=== PATIENT | female | born 1945 | race Caucasian/White ===

== ENCOUNTER 2021-06-14 14:05 | Emergency (ER) | payer BC ==
[2021-06-14 14:25] VITALS: TEMP 98.5
[2021-06-14] MEDS ORDERED: HYDROmorphone 0.5 MG/0.5 ML SYRINGE IVP STA ×2 (15:20→16:56)
[2021-06-14] MEDS ORDERED: LORazepam 2 MG/ML INJ IV STA (15:20)
[2021-06-14] MEDS ORDERED: LIDOCAINE 1%-EPI 1:100,000 20 ML VIAL SQ STA (15:21)
--- NOTE | 2021-06-14 15:26 | ED ---
General Adult HPI <Tigist Mendez - Last Filed: 06/14/21 18:04> - General Source: EMS Mode of arrival: EMS Limitations: no limitations <AkiMichele Cassius - Last Filed: 06/14/21 19:03> - General Chief complaint: Fall Stated complaint: fall Time Seen by Provider: 06/14/21 14:36 - History of Present Illness Initial comments: Dictation was produced using [employer] dictation software. please excuse any g rammatical, word or spelling errors. Chief Complaint: 76-year-old hospice patient presents after fall History of Present Illness: 76-year-old female with multiple comorbidities presents to emergency department after fall. Patient was at home using her walker when she tripped and lost her balance. She states she hurt herself. She complains of back pain. Patient also did report hitting her head. Denies loss of consciousness. She states that she was unable to get up felt too weak. Suffered a laceration to her right upper extremity. Patient adamantly continues to mention that she used to be a nurse for 55 years. The ROS documented in this emergency department record has been reviewed and confirmed by me. Those systems with pertinent positive or negative responses have been documented in the HPI. All other systems are other negative and/or noncontributory. PHYSICAL EXAM: General Impression: Alert and oriented x3, not in acute distress, c-collar placed HEENT: Normocephalic atraumatic, extra-ocular movements intact, pupils equal and reactive to light bilaterally, mucous membranes moist. Cardiovascular: Heart regular rate and rhythm Chest: Able to complete full sentences, no retractions, no tachypnea Abdomen: abdomen soft, non-tender, non-distended, no organomegaly Musculoskeletal: Pulses present and equal in all extremities, no peripheral edema Motor: no focal deficits noted Neurological: CN II-XII grossly intact, no focal motor or sensory deficits noted Skin: Laceration to the right medial elbow Psych: Normal affect and mood ED course: 76-year-old who presents to the emergency department after fall. She is frail and has multiple comorbidities. She is hospice. Hospice nurse was at the bedside and gave a little synopsis of patient's history. Laceration was repaired at bedside by physician metal forger's assistant, Tigist Mendez. Patient does not have any localizing symptoms. Computed tomography scan chest and the pelvis and C-spine shows no acute processes. Laboratory evaluation shows leukocytosis of 16.4, hemoglobin 9.3. Most recent labs are from 2019. It is unclear what patient's labs have been like the last couple days. Metabolic panel is normal. Urinalysis negative. Computed tomography scan does show perhaps some lung infiltrates concerning for pneumonia. Patient given MiraLAX to treat imaging findings with leukocytosis. Patient given prescription for azithromycin and Augmentin. Patient agreeable to plan. EKG interpretation: Ventricular rate 74, normal sinus rhythm,. 172, QRS 78 2, QTc 448. No MT prolongation, no QTC prolongation, no ST or T-wave changes noted. Overall, this EKG is unremarkable (Michele Prabhakar) - Related Data Previous Rx's Medication Instructions Recorded Amoxic-Pot Clav 875-125Mg 1 tab PO BID 5 Days #10 tab 06/14/21 [Augmentin 875-125] Azithromycin [Zithromax Z-pack (6 0 mg PO DIRECTED 5 Days #6 tab 06/14/21 tabs)] Allergies Allergy/AdvReac Type Severity Reaction Status Date / Time carbidopa [From Sinemet] Allergy Unknown Verified 06/14/21 17:45 levodopa [From Sinemet] Allergy Unknown Verified 06/14/21 17:45 levofloxacin [From Levaquin] Allergy Unknown Verified 06/14/21 17:45 metoclopramide [From Reglan] Allergy Unknown Verified 06/14/21 17:45 Review of Systems ROS Other: All systems not noted in ROS Statement are negative. <Tigist Mendez - Last Filed: 06/14/21 18:04> ROS Other: All systems not noted in ROS Statement are negative. <Michele Prabhakar - Last Filed: 06/14/21 19:03> ROS Statement: Those systems with pertinent positive or pertinent negative responses have been documented in the HPI. 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 History of Any Multi-Drug Resistant Organisms: None Reported Past Surgical History: Hysterectomy, Tonsillectomy Past Psychological History: Anxiety Smoking Status: Never smoker Past Alcohol Use History: None Reported Past Drug Use History: None Reported <Mcihele Prabhakar - Last Filed: 06/14/21 19:03> General Exam Limitations: no limitations <Michele Prabhakar - Last Filed: 06/14/21 19:03> Course Vital Signs 06/14/21 06/14/21 14:18 17:13 Temperature 98.5 F Pulse Rate 84 80 Respiratory 20 18 Rate Blood Pressure 99/40 100/51 O2 Sat by Pulse 99 98 Oximetry Procedures - Laceration Laceration #1 Consent Obtained: verbal consent Indication: laceration Site: upper extremity Description: linear Depth: simple, single layer Anesthetic Used: lidocaine 1%, with epi Amount (mls): 4 Pre-repair: irrigated extensively, deep structures intact Type of Sutures: nylon Size of Sutures: 4-0 Number of Sutures: 7 Technique: simple, interrupted Patient Tolerated Procedure: well, no complications <Tigist Mendez - Last Filed: 06/14/21 18:04> Medical Decision Making - Lab Data Result diagrams: 06/14/21 15:45 06/14/21 15:45 <Tigist Mendez - Last Filed: 06/14/21 18:04> - Lab Data Result diagrams: 06/14/21 15:45 06/14/21 15:45 <Michele Prabhakar - Last Filed: 06/14/21 19:03> - Lab Data Lab Results 06/14/21 06/14/21 06/14/21 Range/Units 15:45 15:45 18:15 WBC 16.4 H (3.8-10.6) k/uL RBC 3.47 L (3.80-5.40) m/uL Hgb 9.3 L (11.4-16.0) gm/dL Hct 29.5 L (34.0-46.0) % MCV 85.1 (80.0-100.0) fL MCH 26.7 (25.0-35.0) pg MCHC 31.4 (31.0-37.0) g/dL RDW 19.1 H (11.5-15.5) % Plt Count 193 (150-450) k/uL MPV 7.9 Neutrophils % 90 % Lymphocytes % 5 % Monocytes % 3 % Eosinophils % 1 % Basophils % 0 % Neutrophils # 14.8 H (1.3-7.7) k/uL Lymphocytes # 0.9 L (1.0-4.8) k/uL Monocytes # 0.5 (0-1.0) k/uL Eosinophils # 0.2 (0-0.7) k/uL Basophils # 0.0 (0-0.2) k/uL Hypochromasia Moderate Anisocytosis Slight Microcytosis Slight Sodium 137 (137-145) mmol/L Potassium 3.9 (3.5-5.1) mmol/L Chloride 107 (98-107) mmol/L Carbon Dioxide 26 (22-30) mmol/L Anion Gap 4 mmol/L BUN 16 (7-17) mg/dL Creatinine 0.47 L (0.52-1.04) mg/dL Est GFR (CKD-EPI)AfAm >90 (>60 ml/min/1.73 sqM) Est GFR (CKD-EPI)NonAf >90 (>60 ml/min/1.73 sqM) Glucose 99 (74-99) mg/dL Calcium 8.1 L (8.4-10.2) mg/dL Urine Color Light Yellow Urine Appearance Clear (Clear) Urine pH 7.0 (5.0-8.0) Ur Specific [place] 1.016 (1.001-1.035) Urine Protein Negative (Negative) Urine Glucose (UA) Negative (Negative) Urine Ketones Negative (Negative) Urine Blood Negative (Negative) Urine Nitrite Negative (Negative) Urine Bilirubin Negative (Negative) Urine Urobilinogen <2.0 (<2.0) mg/dL Ur Leukocyte Esterase Negative (Negative) Disposition <Tigist Mendez - Last Filed: 06/14/21 18:04> Is patient prescribed a controlled substance at d/c from ED?: No <Michele Prabhakar - Last Filed: 06/14/21 19:03> Clinical Impression: Fall Disposition: HOME SELF-CARE Condition: Fair Instructions (If sedation given, give patient instructions): Fall Prevention for Older Adults (ED) Additional Instructions: Follow-up with her primary care doctor. Please seek medical attention if any worsening symptoms especially fevers, cough, shortness of breath. Prescriptions: Amoxic-Pot Clav 875-125Mg [Augmentin 875-125] 1 tab PO BID 5 Days #10 tab Azithromycin [Zithromax Z-pack (6 tabs)] 0 mg PO DIRECTED 5 Days #6 tab Referrals: Matthew Pugh MD [Primary Care Provider] - 1-2 days
[2021-06-14 15:58] LABS: Anisocytosis Slight; Basophils % (A) 0 %; Eosinophils # (A) 0.2 k/uL (0-0.7); Eosinophils % (A) 1 %; HCT 29.5 % (34.0-46.0); HGB 9.3 gm/dL (11.4-16.0); Hypochromasia Moderate; Lymphocytes # (A) 0.9 k/uL (1.0-4.8); Lymphocytes % (A) 5 %; MCH 26.7 pg (25.0-35.0); MCHC 31.4 g/dL (31.0-37.0); MCV 85.1 fL (80.0-100.0); Mean Platelet Volume 7.9; Microcytosis Slight; Monocytes # (A) 0.5 k/uL (0-1.0); Monocytes % (A) 3 %; Neutrophils # (A) 14.8 k/uL (1.3-7.7); Neutrophils % (A) 90 %; Platelet Count 193 k/uL (150-450); RBC 3.47 m/uL (3.80-5.40); RDW 19.1 % (11.5-15.5); WBC 16.4 k/uL (3.8-10.6)
[2021-06-14 16:18] LABS: African American GFR (CKD) >90 (>60 ml/min/1.73 sqM); Anion Gap 4 mmol/L; Blood Urea Nitrogen 16 mg/dL (7-17); Calcium 8.1 mg/dL (8.4-10.2); Carbon Dioxide 26 mmol/L (22-30); Chloride 107 mmol/L (98-107); Glucose 99 mg/dL (74-99); Non-African American GFR(CKD) >90 (>60 ml/min/1.73 sqM); Sodium 137 mmol/L (137-145)
[2021-06-14 16:31] LABS: Potassium 3.9 mmol/L (3.5-5.1)
--- NOTE | 2021-06-14 17:15 | CT ---
EXAMINATION TYPE: CT brain hussain aguirre DATE OF EXAM: 06/14/2021 COMPARISON: None HISTORY: fall CT DLP: 1186.[address] of the brain was performed. The ventricles, basal cisterns and sulci overlying the cerebral convexities demonstrate mild enlargem ent. There is no evidence for intracranial hemorrhage or sulcal effacement. There is decreased attenuatio n about the periventricular white matter and deep white matter of both cerebral hemispheres, compatib le with chronic small vessel ischemia. No mass effects are seen. If symptoms persist consider MRI. Osseous calvarium is intact. IMPRESSION: 1. Age related atrophic and chronic small vessel ischemic change without acute intracranial process seen at this time. CT Cervical Spine: Unenhanced CT of the cervical spine was performed with bone and soft tissue window settings submitted . Coronal and sagittal reconstruction is obtained. There is normal alignment and prevertebral soft tissues. No evidence for acute cervical fracture . Ex tensive cervical decompression surgery. Pedicular screws and interconnecting rods are in place. Sca ttered degenerative disc disease and spondylosis. Biapical scarring. IMPRESSION: 1. No evidence for acute fracture or subluxation of the cervical spine.
--- NOTE | 2021-06-14 17:19 | CT ---
EXAMINATION TYPE: CT ChestAbdPelvis w con DATE OF EXAM: 06/14/2021 COMPARISON: None HISTORY: fall CT DLP: 816.2 mGycm CONTRAST: Contrast enhanced Trauma CT of the Chest, Abdomen and Pelvis is performed with IV Contrast, patient i njected with 100 mL of Isovue 300. Chest: LUNGS: There is no evidence for pneumothorax. Patchy right upper lobe infiltrate may reflect underlyi ng pneumonia. No pleural effusion MEDIASTINUM: Thoracic aorta is of normal caliber without CT evidence to suggest traumatic induced ao rtic injury. No mediastinal fluid or blood. No pericardial fluid or cardia abnormality. HILAR STRUCTURES: No evidence for mass. No hilar adenopathy is appreciated. OTHER: No significant abnormality. OSSEOUS: No displaced osseous fractures identified. CT ABDOMEN AND PELVIS FINDINGS: LIVER/GB: No focal laceration, contusion or subcapsular hemorrhage. Cholecystectomy clips are in pl rupal. Intra and extrahepatic biliary ductal dilatation noted.. PANCREAS: No evidence for transection. No inflammation. No distinct mass. SPLEEN: No focal laceration, contusion or subcapsular hemorrhage. ADRENALS: No hemorrhage. No nodule. No thickening. KIDNEYS/BLADDER: No focal laceration, contusion or subcapsular hemorrhage. No hydronephrosis. No n ephrolithiasis. Renal cystic changes noted. BOWEL: Bowel is intact. No evidence for pneumoperitoneum. GENITAL ORGANS: No gross abnormality. LYMPH NODES: No greater than 1cm abdominal or pelvic lymph nodes are appreciated. AORTA: No traumatic aortic injury visualized. Right iliac stent noted to be in place. OSSEOUS STRUCTURES: No displaced fracture seen. OTHER: No evidence for hemoperitoneum. IMPRESSION: 1. No evidence for traumatic injury to the chest. 2. No evidence for traumatic injury to the abdomen or pelvis. 3. Right upper lobe infiltrate. Correlate for pneumonia.
[2021-06-14 18:46] LABS: Appearance,Urine Clear (Clear); Bilirubin,Urine Negative (Negative); Blood,Urine Negative (Negative); Color,Urine Light Yellow; Glucose,Urine (UA) Negative (Negative); Ketones,Urine Negative (Negative); Leukocyte Esterase,Urine Negative (Negative); Nitrite,Urine Negative (Negative); Protein,Urine Negative (Negative); Specific Gravity,Urine 1.016 (1.001-1.035); Urobilinogen,Urine <2.0 mg/dL (<2.0)
[2021-06-14] MEDS ORDERED: ACET/COD 300 MG/30 MG STARTER PACK 6 TAB BTL PO STA (19:06)
--- NOTE | 2021-06-14 19:07 | ED ---
Medical Decision Making - Lab Data Result diagrams: 06/14/21 15:45 06/14/21 15:45 Lab Results 06/14/21 06/14/21 06/14/21 Range/Units 15:45 15:45 18:15 WBC 16.4 H (3.8-10.6) k/uL RBC 3.47 L (3.80-5.40) m/uL Hgb 9.3 L (11.4-16.0) gm/dL Hct 29.5 L (34.0-46.0) % MCV 85.1 (80.0-100.0) fL MCH 26.7 (25.0-35.0) pg MCHC 31.4 (31.0-37.0) g/dL RDW 19.1 H (11.5-15.5) % Plt Count 193 (150-450) k/uL MPV 7.9 Neutrophils % 90 % Lymphocytes % 5 % Monocytes % 3 % Eosinophils % 1 % Basophils % 0 % Neutrophils # 14.8 H (1.3-7.7) k/uL Lymphocytes # 0.9 L (1.0-4.8) k/uL Monocytes # 0.5 (0-1.0) k/uL Eosinophils # 0.2 (0-0.7) k/uL Basophils # 0.0 (0-0.2) k/uL Hypochromasia Moderate Anisocytosis Slight Microcytosis Slight Sodium 137 (137-145) mmol/L Potassium 3.9 (3.5-5.1) mmol/L Chloride 107 (98-107) mmol/L Carbon Dioxide 26 (22-30) mmol/L Anion Gap 4 mmol/L BUN 16 (7-17) mg/dL Creatinine 0.47 L (0.52-1.04) mg/dL Est GFR (CKD-EPI)AfAm >90 (>60 ml/min/1.73 sqM) Est GFR (CKD-EPI)NonAf >90 (>60 ml/min/1.73 sqM) Glucose 99 (74-99) mg/dL Calcium 8.1 L (8.4-10.2) mg/dL Urine Color Light Yellow Urine Appearance Clear (Clear) Urine pH 7.0 (5.0-8.0) Ur Specific [place] 1.016 (1.001-1.035) Urine Protein Negative (Negative) Urine Glucose (UA) Negative (Negative) Urine Ketones Negative (Negative) Urine Blood Negative (Negative) Urine Nitrite Negative (Negative) Urine Bilirubin Negative (Negative) Urine Urobilinogen <2.0 (<2.0) mg/dL Ur Leukocyte Esterase Negative (Negative) Disposition Clinical Impression: Fall Disposition: HOME SELF-CARE Condition: Fair Instructions (If sedation given, give patient instructions): Fall Prevention for Older Adults (ED) Additional Instructions: Follow-up with her primary care doctor. Please seek medical attention if any worsening symptoms especially fevers, cough, shortness of breath. suture removal in 7-10 days Prescriptions: Amoxic-Pot Clav 875-125Mg [Augmentin 875-125] 1 tab PO BID 5 Days #10 tab Azithromycin [Zithromax Z-pack (6 tabs)] 0 mg PO DIRECTED 5 Days #6 tab Is patient prescribed a controlled substance at d/c from ED?: No Referrals: Matthew Pugh MD [Primary Care Provider] - 1-2 days
[2021-06-14 20:34] VITALS: BP 102/76; PULSE 72; RESP 16
== END 2021-06-14 20:33 | disposition home or self-care (01) ==
LOC: EC 14:05
DX: M54.9 Dorsalgia, unspecified (principal); Z88.1 Allergy status to other antibiotic agents; Z90.710 Acquired absence of both cervix and uterus; F41.9 Anxiety disorder, unspecified
CPT/HCPCS: 99284; 96374; 96375; 96376; 12001; 36415; 93005; 80048; 85025; 81003; 72125; 70450; 71260; 74177; J2060; J1170; Q9967

== ENCOUNTER 2022-03-14 09:16 | Emergency (ER) | payer BC, MEDICARE ==
[2022-03-14 09:27] VITALS: TEMP 97.9
[2022-03-14 11:00] LABS: Anisocytosis Slight; Basophils % (A) 0 %; Eosinophils # (A) 0.1 k/uL (0-0.7); Eosinophils % (A) 1 %; HCT 31.5 % (34.0-46.0); HGB 9.4 gm/dL (11.4-16.0); Hypochromasia Marked; Lymphocytes # (A) 2.1 k/uL (1.0-4.8); Lymphocytes % (A) 14 %; MCH 25.3 pg (25.0-35.0); MCHC 29.8 g/dL (31.0-37.0); MCV 84.9 fL (80.0-100.0); Mean Platelet Volume 7.4; Monocytes # (A) 0.4 k/uL (0-1.0); Monocytes % (A) 3 %; Neutrophils # (A) 12.2 k/uL (1.3-7.7); Neutrophils % (A) 82 %; Platelet Count 358 k/uL (150-450); RBC 3.71 m/uL (3.80-5.40); RDW 16.7 % (11.5-15.5); WBC 14.9 k/uL (3.8-10.6)
[2022-03-14 11:09] LABS: ALT 20 U/L (4-34); AST 19 U/L (14-36); African American GFR (CKD) >90 (>60 ml/min/1.73 sqM); Albumin 3.4 g/dL (3.5-5.0); Alkaline Phosphatase 48 U/L (38-126); Anion Gap 8 mmol/L; Blood Urea Nitrogen 21 mg/dL (7-17); Calcium 8.4 mg/dL (8.4-10.2); Carbon Dioxide 26 mmol/L (22-30); Chloride 107 mmol/L (98-107); Creatine Kinase 42 U/L (30-135); Glucose 86 mg/dL (74-99); Lipase 29 U/L (23-300); Non-African American GFR(CKD) >90 (>60 ml/min/1.73 sqM); Potassium 3.5 mmol/L (3.5-5.1); Sodium 141 mmol/L (137-145); Total Bilirubin 0.2 mg/dL (0.2-1.3); Total Protein 5.5 g/dL (6.3-8.2)
[2022-03-14 11:10] LABS: Lactic Acid, Venous 1.2 mmol/L (0.7-2.0)
--- NOTE | 2022-03-14 12:12 | XR ---
EXAMINATION TYPE: XR chest 2V DATE OF EXAM: 03/14/2022 COMPARISON: NONE TECHNIQUE: PA and lateral views submitted. HISTORY: Confusion FINDINGS: The lungs are clear and there is no pneumothorax, pleural effusion, or focal pneumonia. Degenerativ e changes of the spine is normal. No failure. Surgical changes overlying the cervical spine is hyperi nflation IMPRESSION: 1. No acute process. Correlate for COPD and chronic pulmonary fibrosis.
[2022-03-14] MEDS ORDERED: SODIUM CHLORIDE 0.9% 1,000 ML IV STA (12:19)
[2022-03-14] MEDS ORDERED: SODIUM CHLORIDE 0.9% 500 ML 500 ML IV STA (12:19)
[2022-03-14 12:53] LABS: Appearance,Urine Clear (Clear); Bacteria,Urine Rare /hpf; Bilirubin,Urine Negative (Negative); Blood,Urine Negative (Negative); Color,Urine Yellow; Glucose,Urine (UA) Negative (Negative); Ketones,Urine Negative (Negative); Leukocyte Esterase,Urine Small (Negative); Mucus,Urine Occasional /hpf; Nitrite,Urine Negative (Negative); Protein,Urine Trace (Negative); RBC,Urine 8 /hpf (0-5); Specific Gravity,Urine 1.026 (1.001-1.035); Squamous Epithelial Cell,Urine <1 /hpf (0-4); Urobilinogen,Urine <2.0 mg/dL (<2.0); WBC,Urine 7 /hpf (0-5)
[2022-03-14 13:01] LABS: Amphetamine Screen,Urine Not Detected (NotDetected); Barbiturate Screen,Urine Not Detected (NotDetected); Benzodiazepines Screen,Urine Detected (NotDetected); Cocaine Screen,Urine Not Detected (NotDetected); Methadone Screen, Urine Not Detected (NotDetected); Opiate Screen,Urine Detected (NotDetected); Oxycodone Screen, Urine Detected (NotDetected); Phencyclidine Screen,Urine Not Detected (NotDetected); Tricyclic Antidepressant,Urine Detected (NotDetected); Urn Cannabinoid Scrn Not Detected (NotDetected)
--- NOTE | 2022-03-14 13:08 | ED ---
Psych HPI - General Chief Complaint: Psychiatric Symptoms Stated Complaint: mental health Time Seen by Provider: 03/14/22 09:16 Source: patient, EMS, RN notes reviewed Mode of arrival: EMS - History of Present Illness Initial Comments: 68-year-old female from a [facility] home by EMS for evaluation for hallucinations and had agitation. Patient does have a history of Sjogren's syndrome as well as Parkinson's disease celiac sprue anxiety. She was sent here for evaluation patient herself states she has no problems other than question whether her Requip is helping with her tremors. She denies any fevers chills nausea vomiting sweats she does not believe she has any cognitive problems at this time. 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 She does state that she was on Seroquel but did not seem to help with her problems per Requip seem to one taken a proper fashion. She denies any headache dizziness blurry vision fevers chills sweats or other symptoms at this time she does state that she is in hospice however she is in the process of moving to [place] to be with her daughter. MD Complaint: other - Related Data Home Medications Medication Instructions Recorded Confirmed ALPRAZolam [Xanax] 0.5 mg PO Q4H PRN 03/14/22 03/14/22 Acetaminophen Tab [Tylenol Tab] 1,000 mg PO Q12H 03/14/22 03/14/22 Buprenorphine [Butrans 5 MCG/HR] 1 patch TRANSDERM Q7D 03/14/22 03/14/22 DULoxetine HCL [Cymbalta] 60 mg PO DAILY 03/14/22 03/14/22 Fexofenadine HCl [Mamie Allergy] 180 mg PO DAILY 03/14/22 03/14/22 HYDROcodone/APAP 10-325MG [[place] 1 tab PO Q4HR 03/14/22 03/14/22 10-325] Melatonin 5 mg PO HS 03/14/22 03/14/22 Omeprazole [PriLOSEC] 40 mg PO DAILY 03/14/22 03/14/22 Ondansetron Odt [Zofran Odt] 4 mg PO Q6H PRN 03/14/22 03/14/22 QUEtiapine [SEROquel] 100 mg PO HS 03/14/22 03/14/22 busPIRone HCl [Buspar] 20 mg PO BID 03/14/22 03/14/22 diphenhydrAMINE HCL [Benadryl] 25 - 50 mg PO Q4-6H 03/14/22 03/14/22 hydrOXYzine pamoate [Vistaril] 25 mg PO Q6H PRN 03/14/22 03/14/22 predniSONE 10 mg PO DAILY 03/14/22 03/14/22 rOPINIRole HCL [Requip] 4 mg PO TID@0400,1200,2000 03/14/22 03/14/22 rOPINIRole HCL [Requip] 8 mg PO DAILY@0800 03/14/22 03/14/22 Allergies Allergy/AdvReac Type Severity Reaction Status Date / Time carbidopa [From Sinemet] Allergy Unknown Verified 03/14/22 11:08 levodopa [From Sinemet] Allergy Unknown Verified 03/14/22 11:08 levofloxacin [From Levaquin] Allergy Unknown Verified 03/14/22 11:08 metoclopramide [From Reglan] Allergy Unknown Verified 03/14/22 11:08 Review of Systems ROS Statement: Those systems with pertinent positive or pertinent negative responses have been documented in the HPI. ROS Other: All systems not noted in ROS Statement are negative. 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 Absent: scleral icterus, conjunctival injection, periorbital swelling ENT exam: Present: mucous membranes dry Neck exam: Present: normal inspection. Absent: tenderness, meningismus, lymphadenopathy Respiratory exam: Present: normal lung sounds bilaterally. Absent: respiratory distress, wheezes, rales, rhonchi, stridor Cardiovascular Exam: Present: regular rate, normal rhythm, normal heart sounds. Absent: systolic murmur, diastolic murmur, rubs, gallop, clicks GI/Abdominal exam: Present: soft, normal bowel sounds. Absent: distended, tenderness, guarding, rebound, rigid Extremities exam: Present: normal inspection, full ROM, normal capillary refill. Absent: tenderness, pedal edema, joint swelling, calf tenderness Back exam: Present: normal inspection Neurological exam: Present: alert, oriented X3, CN II-XII intact Psychiatric exam: Present: normal affect, normal mood Skin exam: Present: warm, dry, intact, normal color. Absent: rash Course Vital Signs 03/14/22 03/14/22 09:18 13:53 Temperature 97.9 F Pulse Rate 70 71 Respiratory 20 15 Rate Blood Pressure 115/61 107/65 O2 Sat by Pulse 98 95 Oximetry Medical Decision Making - Medical Decision Making Patient will be discharged back to the [facility] home patient is in home hospice. - Lab Data Result diagrams: 03/14/22 10:45 03/14/22 10:45 Lab Results 03/14/22 03/14/22 03/14/22 Range/Units 10:45 10:45 10:45 WBC 14.9 H (3.8-10.6) k/uL RBC 3.71 L (3.80-5.40) m/uL Hgb 9.4 L (11.4-16.0) gm/dL Hct 31.5 L (34.0-46.0) % MCV 84.9 (80.0-100.0) fL MCH 25.3 (25.0-35.0) pg MCHC 29.8 L (31.0-37.0) g/dL RDW 16.7 H (11.5-15.5) % Plt Count 358 (150-450) k/uL MPV 7.4 Neutrophils % 82 % Lymphocytes % 14 % Monocytes % 3 % Eosinophils % 1 % Basophils % 0 % Neutrophils # 12.2 H (1.3-7.7) k/uL Lymphocytes # 2.1 (1.0-4.8) k/uL Monocytes # 0.4 (0-1.0) k/uL Eosinophils # 0.1 (0-0.7) k/uL Basophils # 0.0 (0-0.2) k/uL Hypochromasia Marked Anisocytosis Slight Sodium (137-145) mmol/L Potassium (3.5-5.1) mmol/L Chloride (98-107) mmol/L Carbon Dioxide (22-30) mmol/L Anion Gap mmol/L BUN (7-17) mg/dL Creatinine (0.52-1.04) mg/dL Est GFR (CKD-EPI)AfAm (>60 ml/min/1.73 sqM) Est GFR (CKD-EPI)NonAf (>60 ml/min/1.73 sqM) Glucose (74-99) mg/dL Plasma Lactic Acid Nelson 1.2 (0.7-2.0) mmol/L Calcium (8.4-10.2) mg/dL Magnesium (1.6-2.3) mg/dL Total Bilirubin (0.2-1.3) mg/dL AST (14-36) U/L ALT (4-34) U/L Alkaline Phosphatase (38-126) U/L Ammonia <9 (<30) umol/L Creatine Kinase (30-135) U/L Troponin I (0.000-0.034) ng/mL Total Protein (6.3-8.2) g/dL Albumin (3.5-5.0) g/dL Lipase (23-300) U/L Urine Color Yellow Urine Appearance Clear (Clear) Urine pH 6.0 (5.0-8.0) Ur Specific [place] 1.026 (1.001-1.035) Urine Protein Trace H (Negative) Urine Glucose (UA) Negative (Negative) Urine Ketones Negative (Negative) Urine Blood Negative (Negative) Urine Nitrite Negative (Negative) Urine Bilirubin Negative (Negative) Urine Urobilinogen <2.0 (<2.0) mg/dL Ur Leukocyte Esterase Small H (Negative) Urine RBC 8 H (0-5) /hpf Urine WBC 7 H (0-5) /hpf Ur Squamous Epith Cells <1 (0-4) /hpf Urine Bacteria Rare H (None) /hpf Urine Mucus Occasional H (None) /hpf Urine Opiates Screen Detected H (NotDetected) Ur Oxycodone Screen Detected H (NotDetected) Urine Methadone Screen Not Detected (NotDetected) Ur Propoxyphene Screen Not Detected (NotDetected) Ur Barbiturates Screen Not Detected (NotDetected) U Tricyclic Antidepress Detected H (NotDetected) Ur Phencyclidine Scrn Not Detected (NotDetected) Ur Amphetamines Screen Not Detected (NotDetected) U Methamphetamines Scrn Not Detected (NotDetected) U Benzodiazepines Scrn Detected H (NotDetected) Urine Cocaine Screen Not Detected (NotDetected) U Marijuana (THC) Screen Not Detected (NotDetected) Coronavirus (PCR) (Not Detectd) Influenza Type A RNA (Not Detectd) Influenza Type B (PCR) (Not Detectd) 03/14/22 03/14/22 03/14/22 Range/Units 10:45 10:45 10:45 WBC (3.8-10.6) k/uL RBC (3.80-5.40) m/uL Hgb (11.4-16.0) gm/dL Hct (34.0-46.0) % MCV (80.0-100.0) fL MCH (25.0-35.0) pg MCHC (31.0-37.0) g/dL RDW (11.5-15.5) % Plt Count (150-450) k/uL MPV Neutrophils % % Lymphocytes % % Monocytes % % Eosinophils % % Basophils % % Neutrophils # (1.3-7.7) k/uL Lymphocytes # (1.0-4.8) k/uL Monocytes # (0-1.0) k/uL Eosinophils # (0-0.7) k/uL Basophils # (0-0.2) k/uL Hypochromasia Anisocytosis Sodium 141 (137-145) mmol/L Potassium 3.5 (3.5-5.1) mmol/L Chloride 107 (98-107) mmol/L Carbon Dioxide 26 (22-30) mmol/L Anion Gap 8 mmol/L BUN 21 H (7-17) mg/dL Creatinine 0.47 L (0.52-1.04) mg/dL Est GFR (CKD-EPI)AfAm >90 (>60 ml/min/1.73 sqM) Est GFR (CKD-EPI)NonAf >90 (>60 ml/min/1.73 sqM) Glucose 86 (74-99) mg/dL Plasma Lactic Acid Nelson (0.7-2.0) mmol/L Calcium 8.4 (8.4-10.2) mg/dL Magnesium 2.0 (1.6-2.3) mg/dL Total Bilirubin 0.2 (0.2-1.3) mg/dL AST 19 (14-36) U/L ALT 20 (4-34) U/L Alkaline Phosphatase 48 (38-126) U/L Ammonia (<30) umol/L Creatine Kinase 42 (30-135) U/L Troponin I <0.012 (0.000-0.034) ng/mL Total Protein 5.5 L (6.3-8.2) g/dL Albumin 3.4 L (3.5-5.0) g/dL Lipase 29 (23-300) U/L Urine Color Urine Appearance (Clear) Urine pH (5.0-8.0) Ur Specific [place] (1.001-1.035) Urine Protein (Negative) Urine Glucose (UA) (Negative) Urine Ketones (Negative) Urine Blood (Negative) Urine Nitrite (Negative) Urine Bilirubin (Negative) Urine Urobilinogen (<2.0) mg/dL Ur Leukocyte Esterase (Negative) Urine RBC (0-5) /hpf Urine WBC (0-5) /hpf Ur Squamous Epith Cells (0-4) /hpf Urine Bacteria (None) /hpf Urine Mucus (None) /hpf Urine Opiates Screen (NotDetected) Ur Oxycodone Screen (NotDetected) Urine Methadone Screen (NotDetected) Ur Propoxyphene Screen (NotDetected) Ur Barbiturates Screen (NotDetected) U Tricyclic Antidepress (NotDetected) Ur Phencyclidine Scrn (NotDetected) Ur Amphetamines Screen (NotDetected) U Methamphetamines Scrn (NotDetected) U Benzodiazepines Scrn (NotDetected) Urine Cocaine Screen (NotDetected) U Marijuana (THC) Screen (NotDetected) Coronavirus (PCR) (Not Detectd) Influenza Type A RNA Not Detected (Not Detectd) Influenza Type B (PCR) Not Detected (Not Detectd) 03/14/22 Range/Units 10:45 WBC (3.8-10.6) k/uL RBC (3.80-5.40) m/uL Hgb (11.4-16.0) gm/dL Hct (34.0-46.0) % MCV (80.0-100.0) fL MCH (25.0-35.0) pg MCHC (31.0-37.0) g/dL RDW (11.5-15.5) % Plt Count (150-450) k/uL MPV Neutrophils % % Lymphocytes % % Monocytes % % Eosinophils % % Basophils % % Neutrophils # (1.3-7.7) k/uL Lymphocytes # (1.0-4.8) k/uL Monocytes # (0-1.0) k/uL Eosinophils # (0-0.7) k/uL Basophils # (0-0.2) k/uL Hypochromasia Anisocytosis Sodium (137-145) mmol/L Potassium (3.5-5.1) mmol/L Chloride (98-107) mmol/L Carbon Dioxide (22-30) mmol/L Anion Gap mmol/L BUN (7-17) mg/dL Creatinine (0.52-1.04) mg/dL Est GFR (CKD-EPI)AfAm (>60 ml/min/1.73 sqM) Est GFR (CKD-EPI)NonAf (>60 ml/min/1.73 sqM) Glucose (74-99) mg/dL Plasma Lactic Acid Nelson (0.7-2.0) mmol/L Calcium (8.4-10.2) mg/dL Magnesium (1.6-2.3) mg/dL Total Bilirubin (0.2-1.3) mg/dL AST (14-36) U/L ALT (4-34) U/L Alkaline Phosphatase (38-126) U/L Ammonia (<30) umol/L Creatine Kinase (30-135) U/L Troponin I (0.000-0.034) ng/mL Total Protein (6.3-8.2) g/dL Albumin (3.5-5.0) g/dL Lipase (23-300) U/L Urine Color Urine Appearance (Clear) Urine pH (5.0-8.0) Ur Specific [place] (1.001-1.035) Urine Protein (Negative) Urine Glucose (UA) (Negative) Urine Ketones (Negative) Urine Blood (Negative) Urine Nitrite (Negative) Urine Bilirubin (Negative) Urine Urobilinogen (<2.0) mg/dL Ur Leukocyte Esterase (Negative) Urine RBC (0-5) /hpf Urine WBC (0-5) /hpf Ur Squamous Epith Cells (0-4) /hpf Urine Bacteria (None) /hpf Urine Mucus (None) /hpf Urine Opiates Screen (NotDetected) Ur Oxycodone Screen (NotDetected) Urine Methadone Screen (NotDetected) Ur Propoxyphene Screen (NotDetected) Ur Barbiturates Screen (NotDetected) U Tricyclic Antidepress (NotDetected) Ur Phencyclidine Scrn (NotDetected) Ur Amphetamines Screen (NotDetected) U Methamphetamines Scrn (NotDetected) U Benzodiazepines Scrn (NotDetected) Urine Cocaine Screen (NotDetected) U Marijuana (THC) Screen (NotDetected) Coronavirus (PCR) Not Detected (Not Detectd) Influenza Type A RNA (Not Detectd) Influenza Type B (PCR) (Not Detectd) - EKG Data -: EKG Interpreted by [place] EKG shows normal: sinus rhythm EKG Comments: Sinus rhythm a 62. Interval 174 QRS duration 86 QT since QTC 4:15/[address]-T wave changes - Radiology Data Radiology results: report reviewed (Imaging no acute findings), image reviewed Disposition Clinical Impression: Feared condition not demonstrated, Dehydration, Parkinsons disease Disposition: HOME SELF-CARE Condition: Good Instructions (If sedation given, give patient instructions): Dehydration (ED), Parkinson Disease (ED) Is patient prescribed a controlled substance at d/c from ED?: No Referrals: Matthew Pugh MD [Primary Care Provider] - 1-2 days Decision Date: 03/14/22 Decision Time: 14:03
[2022-03-14 15:37] VITALS: BP 119/72; PULSE 68; RESP 16
== END 2022-03-14 15:37 | disposition home or self-care (01) ==
LOC: EC 09:16
DX: E86.0 Dehydration (principal); G20 Parkinson's disease; Z20.822 Contact with and (suspected) exposure to COVID-19; Z88.8 Allergy status to other drugs, medicaments and biological substances; Z88.1 Allergy status to other antibiotic agents
CPT/HCPCS: 36415; 71046; 80053; 80306; 81001; 82140; 82550; 83605; 83690; 83735; 84484; 85025; 87502; 87635; 93005; 96360; 96361; 99285

== ENCOUNTER 2022-03-23 14:20 | Inpatient (IN) | payer MEDICARE ==
[2022-03-23] MEDS ORDERED: SODIUM CHLORIDE 0.9% 1,000 ML IV STA (14:54)
--- NOTE | 2022-03-23 14:59 | ED ---
General Adult HPI - General Chief complaint: Weakness Stated complaint: Fall Time Seen by Provider: 03/23/22 14:32 Source: patient, RN notes reviewed Mode of arrival: EMS Limitations: physical limitation - History of Present Illness Initial comments: Patient is a pleasant 77-year-old female presenting to the emergency department for frequent falls. Patient has had 2 or 3 falls today, one or 2 yesterday and at least one the day before. Patient denies any serious injury. No syncope or head trauma. Patient does feel generally weak. Patient is concerned she may be dehydrated. No chest pain or dyspnea. No isolated area of weakness or confusion. Last tetanus immunization was less than 10 years - Related Data Home Medications Medication Instructions Recorded Confirmed ALPRAZolam [Xanax] 0.5 mg PO Q4H PRN 03/14/22 03/14/22 Acetaminophen Tab [Tylenol Tab] 1,000 mg PO Q12H 03/14/22 03/14/22 Buprenorphine [Butrans 5 MCG/HR] 1 patch TRANSDERM Q7D 03/14/22 03/14/22 DULoxetine HCL [Cymbalta] 60 mg PO DAILY 03/14/22 03/14/22 Fexofenadine HCl [Mamie Allergy] 180 mg PO DAILY 03/14/22 03/14/22 HYDROcodone/APAP 10-325MG [[place] 1 tab PO Q4HR 03/14/22 03/14/22 10-325] Melatonin 5 mg PO HS 03/14/22 03/14/22 Omeprazole [PriLOSEC] 40 mg PO DAILY 03/14/22 03/14/22 Ondansetron Odt [Zofran Odt] 4 mg PO Q6H PRN 03/14/22 03/14/22 QUEtiapine [SEROquel] 100 mg PO HS 03/14/22 03/14/22 busPIRone HCl [Buspar] 20 mg PO BID 03/14/22 03/14/22 diphenhydrAMINE HCL [Benadryl] 25 - 50 mg PO Q4-6H 03/14/22 03/14/22 hydrOXYzine pamoate [Vistaril] 25 mg PO Q6H PRN 03/14/22 03/14/22 predniSONE 10 mg PO DAILY 03/14/22 03/14/22 rOPINIRole HCL [Requip] 4 mg PO TID@0400,1200,2000 03/14/22 03/14/22 rOPINIRole HCL [Requip] 8 mg PO DAILY@0800 03/14/22 03/14/22 Allergies Allergy/AdvReac Type Severity Reaction Status Date / Time carbidopa [From Sinemet] Allergy Unknown Verified 03/23/22 14:31 levodopa [From Sinemet] Allergy Unknown Verified 03/23/22 14:31 levofloxacin [From Levaquin] Allergy Unknown Verified 03/23/22 14:31 metoclopramide [From Reglan] Allergy Unknown Verified 03/23/22 14:31 Review of Systems ROS Statement: Those systems with pertinent positive or pertinent negative responses have been documented in the HPI. ROS Other: All systems not noted in ROS Statement are negative. 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 History of Any Multi-Drug Resistant Organisms: None Reported Past Surgical History: Hysterectomy, Tonsillectomy Past Psychological History: Anxiety Smoking Status: Never smoker Past Alcohol Use History: None Reported Past Drug Use History: None Reported General Exam Limitations: physical limitation General appearance: alert, in no apparent distress Head exam: Present: atraumatic, normocephalic Eye exam: Present: normal appearance, PERRL, EOMI ENT exam: Present: normal oropharynx Neck exam: Present: normal inspection. Absent: tenderness Respiratory exam: Present: normal lung sounds bilaterally Cardiovascular Exam: Present: regular rate, normal rhythm GI/Abdominal exam: Present: soft. Absent: tenderness Extremities exam: Present: normal inspection, full ROM. Absent: tenderness Neurological exam: Present: alert Expanded Neurological exam: Present: protecting the airway Cranial nerves: EOM's Intact: Normal Motor strength exam: RUE: 4, LUE: 4, RLE: 4, LLE: 4 Eye Response: (4) open spontaneously Motor Response: (6) obeys commands Verbal Response: (5) oriented Psychiatric exam: Present: normal affect, normal mood Skin exam: Present: other (Skin tears) Course Vital Signs 03/23/22 03/23/22 14:23 16:12 Temperature 99.4 F Pulse Rate 88 87 Respiratory 18 18 Rate Blood Pressure 112/56 92/49 O2 Sat by Pulse 98 95 Oximetry EKG Findings - EKG Comments: EKG Findings:: Sinus rhythm rate 88. For screening AV block MD 208. QRS 74. QT 359. QTC 405. Left axis. Poor R-wave progression. No acute ST change. Artifact is present. Medical Decision Making - Lab Data Result diagrams: 03/23/22 15:03 03/23/22 15:03 Lab Results 03/23/22 03/23/22 03/23/22 Range/Units 15:03 15:03 15:03 WBC 20.7 H (3.8-10.6) k/uL RBC 3.56 L (3.80-5.40) m/uL Hgb 8.9 L (11.4-16.0) gm/dL Hct 29.0 L (34.0-46.0) % MCV 81.3 (80.0-100.0) fL MCH 25.1 (25.0-35.0) pg MCHC 30.9 L (31.0-37.0) g/dL RDW 16.4 H (11.5-15.5) % Plt Count 354 (150-450) k/uL MPV 7.5 Neutrophils % 89 % Lymphocytes % 6 % Monocytes % 3 % Eosinophils % 1 % Basophils % 0 % Neutrophils # 18.5 H (1.3-7.7) k/uL Lymphocytes # 1.3 (1.0-4.8) k/uL Monocytes # 0.6 (0-1.0) k/uL Eosinophils # 0.1 (0-0.7) k/uL Basophils # 0.0 (0-0.2) k/uL Hypochromasia Moderate Anisocytosis Slight PT 10.7 (9.0-12.0) sec INR 1.0 (<1.2) APTT 21.6 L (22.0-30.0) sec Sodium 139 (137-145) mmol/L Potassium 3.7 (3.5-5.1) mmol/L Chloride 106 (98-107) mmol/L Carbon Dioxide 26 (22-30) mmol/L Anion Gap 7 mmol/L BUN 25 H (7-17) mg/dL Creatinine 0.51 L (0.52-1.04) mg/dL Est GFR (CKD-EPI)AfAm >90 (>60 ml/min/1.73 sqM) Est GFR (CKD-EPI)NonAf >90 (>60 ml/min/1.73 sqM) Glucose 95 (74-99) mg/dL Plasma Lactic Acid Nelson (0.7-2.0) mmol/L Calcium 7.7 L (8.4-10.2) mg/dL Phosphorus 3.8 (2.5-4.5) mg/dL Magnesium 1.9 (1.6-2.3) mg/dL Total Bilirubin 0.8 (0.2-1.3) mg/dL AST 243 H (14-36) U/L ALT 191 H (4-34) U/L Alkaline Phosphatase 116 (38-126) U/L Troponin I (0.000-0.034) ng/mL Total Protein 5.4 L (6.3-8.2) g/dL Albumin 3.3 L (3.5-5.0) g/dL TSH 1.470 (0.465-4.680) mIU/L Free T4 1.53 (0.78-2.19) ng/dL 03/23/22 03/23/22 Range/Units 15:03 15:03 WBC (3.8-10.6) k/uL RBC (3.80-5.40) m/uL Hgb (11.4-16.0) gm/dL Hct (34.0-46.0) % MCV (80.0-100.0) fL MCH (25.0-35.0) pg MCHC (31.0-37.0) g/dL RDW (11.5-15.5) % Plt Count (150-450) k/uL MPV Neutrophils % % Lymphocytes % % Monocytes % % Eosinophils % % Basophils % % Neutrophils # (1.3-7.7) k/uL Lymphocytes # (1.0-4.8) k/uL Monocytes # (0-1.0) k/uL Eosinophils # (0-0.7) k/uL Basophils # (0-0.2) k/uL Hypochromasia Anisocytosis PT (9.0-12.0) sec INR (<1.2) APTT (22.0-30.0) sec Sodium (137-145) mmol/L Potassium (3.5-5.1) mmol/L Chloride (98-107) mmol/L Carbon Dioxide (22-30) mmol/L Anion Gap mmol/L BUN (7-17) mg/dL Creatinine (0.52-1.04) mg/dL Est GFR (CKD-EPI)AfAm (>60 ml/min/1.73 sqM) Est GFR (CKD-EPI)NonAf (>60 ml/min/1.73 sqM) Glucose (74-99) mg/dL Plasma Lactic Acid Nelson 1.0 (0.7-2.0) mmol/L Calcium (8.4-10.2) mg/dL Phosphorus (2.5-4.5) mg/dL Magnesium (1.6-2.3) mg/dL Total Bilirubin (0.2-1.3) mg/dL AST (14-36) U/L ALT (4-34) U/L Alkaline Phosphatase (38-126) U/L Troponin I <0.012 (0.000-0.034) ng/mL Total Protein (6.3-8.2) g/dL Albumin (3.5-5.0) g/dL TSH (0.465-4.680) mIU/L Free T4 (0.78-2.19) ng/dL - Radiology Data Radiology results: image reviewed (Chest x-ray shows right lower lobe infiltrat e) Disposition Clinical Impression: Pneumonia, General weakness Disposition: ADMITTED IP TO THIS HOSP Is patient prescribed a controlled substance at d/c from ED?: No Referrals: Matthew Pugh MD [Primary Care Provider] - 1-2 days Time of Disposition: 16:25
[2022-03-23 15:21] LABS: Anisocytosis Slight; Basophils % (A) 0 %; Eosinophils # (A) 0.1 k/uL (0-0.7); Eosinophils % (A) 1 %; HGB 8.9 gm/dL (11.4-16.0); Hypochromasia Moderate; Lymphocytes # (A) 1.3 k/uL (1.0-4.8); Lymphocytes % (A) 6 %; MCH 25.1 pg (25.0-35.0); MCHC 30.9 g/dL (31.0-37.0); MCV 81.3 fL (80.0-100.0); Mean Platelet Volume 7.5; Monocytes # (A) 0.6 k/uL (0-1.0); Monocytes % (A) 3 %; Neutrophils # (A) 18.5 k/uL (1.3-7.7); Neutrophils % (A) 89 %; Platelet Count 354 k/uL (150-450); RBC 3.56 m/uL (3.80-5.40); RDW 16.4 % (11.5-15.5); WBC 20.7 k/uL (3.8-10.6)
[2022-03-23 15:28] LABS: Prothrombin Time 10.7 sec (9.0-12.0)
[2022-03-23 15:29] LABS: ALT 191 U/L (4-34); AST 243 U/L (14-36); African American GFR (CKD) >90 (>60 ml/min/1.73 sqM); Albumin 3.3 g/dL (3.5-5.0); Alkaline Phosphatase 116 U/L (38-126); Anion Gap 7 mmol/L; Blood Urea Nitrogen 25 mg/dL (7-17); Calcium 7.7 mg/dL (8.4-10.2); Carbon Dioxide 26 mmol/L (22-30); Chloride 106 mmol/L (98-107); Glucose 95 mg/dL (74-99); Magnesium 1.9 mg/dL (1.6-2.3); Non-African American GFR(CKD) >90 (>60 ml/min/1.73 sqM); Phosphorus 3.8 mg/dL (2.5-4.5); Sodium 139 mmol/L (137-145); Total Bilirubin 0.8 mg/dL (0.2-1.3); Total Protein 5.4 g/dL (6.3-8.2)
[2022-03-23 15:31] LABS: Potassium 3.7 mmol/L (3.5-5.1)
[2022-03-23 15:43] LABS: Partial Thromboplastin Time 21.6 sec (22.0-30.0)
[2022-03-23 15:44] LABS: T4, Free (Free Thyroxine) 1.53 ng/dL (0.78-2.19)
--- NOTE | 2022-03-23 15:48 | CT ---
EXAMINATION TYPE: CT brain wo con CT DLP: 1039.4 mGycm, Automated exposure control for dose reduction was used. DATE OF EXAM: 03/23/2022 3:40 PM COMPARISON: CT brain C-spine 06/14/2021. CLINICAL INDICATION:Female, 77 years old with history of weakness, weakness, ams TECHNIQUE: Brain: Multiple axial CT images of the brain were obtained without IV contrast. Coronal and sagittal reformats reviewed. FINDINGS: Brain: Extra-axial spaces: No abnormal extra-axial fluid collections. Ventricular system: Within normal limits Cerebral parenchyma: No acute intraparenchymal hemorrhage or mass effect. The persaud-white junction is well differentiated. Scattered hypoattenuating areas are seen within the white matter. Cerebral vol ume loss. Cerebellum: Unremarkable. Mass effect: No evidence of midline shift. Intracranial vasculature: Atherosclerotic calcifications of the intracranial vessels. Soft tissues: Normal. Calvarium/osseous structures: No depressed skull fracture. Paranasal sinuses and mastoid air cells: Mild scattered paranasal sinus disease. Visualized orbits: Orbital contents are intact. IMPRESSION: 1. No acute intracranial process. No significant change from prior examination. 2. Nonspecific white matter changes, likely secondary to chronic small vessel ischemic disease.
--- NOTE | 2022-03-23 15:53 | XR ---
EXAMINATION TYPE: XR chest 2V DATE OF EXAM: 03/23/2022 COMPARISON: 03/14/2022 HISTORY: Weakness TECHNIQUE: Frontal and lateral views of the chest are obtained. FINDINGS: The exam is somewhat limited by technique. There is an ill-defined partially consolidative opacity in one of the lung bases on the lateral view, likely the right lung base suspicious for pneu yoseph infiltrate. There is no pleural effusion or grossly intact. IMPRESSION: Findings suggestive of right lower lobe pneumonia. Clinical correlation short-term foll ow-up to resolution is recommended.
[2022-03-23] MEDS ORDERED: AZITHROMYCIN 500 MG in SODIUM CHLORIDE 0.9% 250 ML IVPB STA (16:23)
[2022-03-23] MEDS ORDERED: PNEUMONIA PROTOCOL UTILIZED 1 EACH MISC PO PRN (16:23)
--- NOTE | 2022-03-23 17:14 | P.HPIM ---
History of Present Illness H&P Date: 03/23/22 History of Presenting Illness: Patient is a Patient underwent full evaluation in the emergency department and was found to have significant leukocytosis with WBC count of 20.7, normocytic anemia with hemoglobin of 8.9, and elevated liver function with AST of 243 and ALT of 191. Chest x-ray revealing right lower lobe pneumonia. CT head negative for acute intercranial process. Troponin was negative at less than 0.012. Covid PCR was negative. Vital signs stable patient did have low-grade temp of 99.4F, heart rate 88, respiratory rate 18, blood pressure 112/56, and SpO2 of 98% on room air. Review of systems: Pertinent positives and negatives as discussed in HPI, a complete review of systems was performed and all other systems are negative. Physical exam: Vital signs reviewed and stable. General: Nontoxic, no distress and appears stated age. Derm: Skin warm and dry, normal coloration for ethnicity. Head: Atraumatic, normocephalic and symmetric. Eyes: EOMs intact, no lid lag, and anicteric sclera Mouth: no lip lesions, mucus membranes moist Cardiovascular: regular rate and rhythm with normal S1S2, no murmur, positive posterior tibial pulses bilaterally, and cap refill < 2 seconds. Lungs: Respirations even, regular, and unlabored on room air. Lungs CTA bilaterally, no rhonchi, no rales, no wheezing, and no accessory muscle usage. Abdominal: soft, nontender to palpation, no guarding, no appreciable organomegaly Ext: ROM intact. No gross muscle atrophy, no edema, no contractures Neuro: Speech clear, face symmetrical and CN II-XII grossly intact with no noted focal neuro deficits Psych: Alert and oriented to person, place, time, and situation. Appropriate and pleasant affect. Assessment and Plan of Care: The patient is admitted with an anticipated greater than 2 midnight stay for evaluation of []. Surrogate decision-maker: [] CODE STATUS:[] DVT prophylaxis: [] Discussed with: [] Anticipated discharge date: [] Anticipated discharge place: [] A total of [] minutes was spent on the care of this complex patient more than 50% of the time was spent in counseling and care coordination. 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 History of Any Multi-Drug Resistant Organisms: None Reported Past Surgical History: Hysterectomy, Tonsillectomy Past Psychological History: Anxiety Smoking Status: Never smoker Past Alcohol Use History: None Reported Past Drug Use History: None Reported Medications and Allergies Home Medications Medication Instructions Recorded Confirmed Type ALPRAZolam [Xanax] 0.5 mg PO Q4H PRN 03/14/22 03/23/22 History Acetaminophen Tab [Tylenol Tab] 1,000 mg PO Q12H 03/14/22 03/23/22 History Buprenorphine [Butrans 5 MCG/HR] 1 patch TRANSDERM Q7D 03/14/22 03/23/22 History DULoxetine HCL [Cymbalta] 60 mg PO DAILY 03/14/22 03/23/22 History Fexofenadine HCl [[place]amie Allergy] 180 mg PO DAILY 03/14/22 03/23/22 History HYDROcodone/APAP 10-325MG [[place] 1 tab PO Q4HR 03/14/22 03/23/22 History 10-325] Melatonin 5 mg PO HS 03/14/22 03/23/22 History Omeprazole [PriLOSEC] 40 mg PO DAILY 03/14/22 03/23/22 History Ondansetron Odt [Zofran Odt] 4 mg PO Q6H PRN 03/14/22 03/23/22 History QUEtiapine [SEROquel] 100 mg PO HS 03/14/22 03/23/22 History busPIRone HCl [Buspar] 20 mg PO BID 03/14/22 03/23/22 History diphenhydrAMINE HCL [Benadryl] 25 - 50 mg PO Q4-6H 03/14/22 03/23/22 History hydrOXYzine pamoate [Vistaril] 25 mg PO Q6H PRN 03/14/22 03/23/22 History predniSONE 10 mg PO DAILY 03/14/22 03/23/22 History rOPINIRole HCL [Requip] 4 mg PO TID@0400,1200,2000 03/14/22 03/23/22 History rOPINIRole HCL [Requip] 8 mg PO DAILY@0800 03/14/22 03/23/22 History Allergies Allergy/AdvReac Type Severity Reaction Status Date / Time carbidopa [From Sinemet] Allergy Unknown Verified 03/23/22 16:55 levodopa [From Sinemet] Allergy Unknown Verified 03/23/22 16:55 levofloxacin [From Levaquin] Allergy Unknown Verified 03/23/22 16:55 metoclopramide [From Reglan] Allergy Unknown Verified 03/23/22 16:55 Physical Exam Vitals: Vital Signs Temp Pulse Resp BP Pulse Ox 03/23/22 16:12 87 18 92/49 95 03/23/22 14:23 99.4 F 88 18 112/56 98 Intake and Output 03/23/22 03/23/22 03/23/22 06:59 14:59 22:59 Other: Weight 45.359 kg Results CBC & Chem 7: 03/23/22 15:03 03/23/22 15:03 Labs: Abnormal Lab Results - Last 24 Hours (Table) 03/23/22 03/23/22 03/23/22 Range/Units 15:03 15:03 15:03 WBC 20.7 H (3.8-10.6) k/uL RBC 3.56 L (3.80-5.40) m/uL Hgb 8.9 L (11.4-16.0) gm/dL Hct 29.0 L (34.0-46.0) % MCHC 30.9 L (31.0-37.0) g/dL RDW 16.4 H (11.5-15.5) % Neutrophils # 18.5 H (1.3-7.7) k/uL APTT 21.6 L (22.0-30.0) sec BUN 25 H (7-17) mg/dL Creatinine 0.51 L (0.52-1.04) mg/dL Calcium 7.7 L (8.4-10.2) mg/dL AST 243 H (14-36) U/L ALT 191 H (4-34) U/L Total Protein 5.4 L (6.3-8.2) g/dL Albumin 3.3 L (3.5-5.0) g/dL
[2022-03-23 17:55] LABS: Appearance,Urine Clear (Clear); Bacteria,Urine Rare /hpf; Bilirubin,Urine Negative (Negative); Blood,Urine Large (Negative); Color,Urine Yellow; Glucose,Urine (UA) Negative (Negative); Ketones,Urine Negative (Negative); Leukocyte Esterase,Urine Moderate (Negative); Mucus,Urine Rare /hpf; Nitrite,Urine Negative (Negative); PH, Urine 6.5 (5.0-8.0); Protein,Urine Trace (Negative); RBC,Urine 12 /hpf (0-5); Specific Gravity,Urine 1.021 (1.001-1.035); Squamous Epithelial Cell,Urine 1 /hpf (0-4); WBC,Urine 13 /hpf (0-5)
--- NOTE | 2022-03-23 18:20 | P.HPIM ---
History of Present Illness H&P Date: 03/23/22 Chief Complaint: Dyspnea, pain 77-year-old woman with a history of Parkinson's, severe protein calorie malnutrition, Sjogren's, lupus, chronic back and neck pain with narcotic dependence presented from home with complaints of uncontrolled pain as well as shortness of breath. Patient is a poor historian due to dementia. From my understanding of what brought her to the hospital, patient has been expressing uncontrolled pain in her back in her neck after having been kicked out of her assisted living facility approximately 4 days ago. Previously she had been living in her assisted living facility under hospice care, but was told that she was no longer welcome and consequently was kicked out and had to go live with her who apparently has alcohol abuse issues. Since that time, she has not had her pain controlled, and has been noticing increased shortness of breath. Review of systems will be unreliable in this patient. In the emergency room, patient was afebrile, 112/56, heart rate 88, 98% on room air. CBC demonstrates a white blood cell count 20.7, hemoglobin of 8.9, neutrophil predominance. Chemistries are unremarkable. Liver function test shows elevated liver function tests at 243, 191 of AST, ALT respectively, low total protein of 5.4, low albumin at 3.3. Coags were unremarkable. Troponin was less than 0.012. Ammonia level was 11. TSH was 1.47. Free T4 is 1.53. Free T3 is 5.0. UA shows trace protein, large blood, moderate leukocyte esterase, 12 red blood cells, 13 white blood cells, rare bacteria. Covid was negative. EKG is of poor quality due to Parkinson's tremors during the reading, appears to be normal sinus rhythm. Chest x-ray demonstrates findings suggestive of right lower lobe pneumonia. Brain CT is negative for an acute intracranial process. See above regarding review of systems Gen: in mild distress from pain, lying on her side and in bed, cachectic Eyes: PERRL, no scleral injection or icterus HENT: normocephalic, atraumatic, good hearing acuity, moist mucous membranes Neck: no tracheal deviation, full range of motion Resp: good air exchange, breathing comfortably with no accessory muscle use, no tactile fremitus, right lower lobe crackles CVS: good distal perfusion x 4, no pitting edema, regular rate and rhythm GI: soft, NTTP, ND, no hepatosplenomegaly : no suprapubic tenderness, no CVAT, jones catheter not present MSK: no clubbing, no cyanosis, no noted contractures of extremities Skin: no noted rashes, petechiae; temperature of skin is appropriate Neuro: moving all extremities without signs of weakness, CN II-XII intact Psych: cooperative, depressed mood Labs and imaging as above Assessment/plan: Sepsis Community acquired pneumonia -Admit to inpatient, telemetry -Ceftriaxone, azithromycin -Follow up blood cultures -Palliative consult on Saturday if patient is still in the hospital -Oxygen as needed Intractable back pain Chronic back and neck pain with narcotic dependence -Morphine 4mg every 4 hours when necessary -[place] when necessary -Bowel regimen Severe protein calorie malnutrition -Dietitian consult History of Parkinson's History of Sjogren's History of lupus Dementia -Home medications reviewed and reconciled Patient is DO NOT RESUSCITATE/DO NOT INTUBATE DVT prophylaxis with heparin twice a day 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 History of Any Multi-Drug Resistant Organisms: None Reported Past Surgical History: Hysterectomy, Tonsillectomy Past Psychological History: Anxiety Smoking Status: Never smoker Past Alcohol Use History: None Reported Past Drug Use History: None Reported Medications and Allergies Home Medications Medication Instructions Recorded Confirmed Type ALPRAZolam [Xanax] 0.5 mg PO Q4H PRN 03/14/22 03/23/22 History Acetaminophen Tab [Tylenol Tab] 1,000 mg PO Q12H 03/14/22 03/23/22 History Buprenorphine [Butrans 5 MCG/HR] 1 patch TRANSDERM Q7D 03/14/22 03/23/22 History DULoxetine HCL [Cymbalta] 60 mg PO DAILY 03/14/22 03/23/22 History Fexofenadine HCl [Mamie Allergy] 180 mg PO DAILY 03/14/22 03/23/22 History HYDROcodone/APAP 10-325MG [[place] 1 tab PO Q4HR 03/14/22 03/23/22 History 10-325] Melatonin 5 mg PO HS 03/14/22 03/23/22 History Omeprazole [PriLOSEC] 40 mg PO DAILY 03/14/22 03/23/22 History Ondansetron Odt [Zofran Odt] 4 mg PO Q6H PRN 03/14/22 03/23/22 History QUEtiapine [SEROquel] 100 mg PO HS 03/14/22 03/23/22 History busPIRone HCl [Buspar] 20 mg PO BID 03/14/22 03/23/22 History diphenhydrAMINE HCL [Benadryl] 25 - 50 mg PO Q4-6H 03/14/22 03/23/22 History hydrOXYzine pamoate [Vistaril] 25 mg PO Q6H PRN 03/14/22 03/23/22 History predniSONE 10 mg PO DAILY 03/14/22 03/23/22 History rOPINIRole HCL [Requip] 4 mg PO TID@0400,1200,2000 03/14/22 03/23/22 History rOPINIRole HCL [Requip] 8 mg PO DAILY@0800 03/14/22 03/23/22 History Allergies Allergy/AdvReac Type Severity Reaction Status Date / Time carbidopa [From Sinemet] Allergy Unknown Verified 03/23/22 16:55 levodopa [From Sinemet] Allergy Unknown Verified 03/23/22 16:55 levofloxacin [From Levaquin] Allergy Unknown Verified 03/23/22 16:55 metoclopramide [From Reglan] Allergy Unknown Verified 03/23/22 16:55 Physical Exam Osteopathic Statement: *. No significant issues noted on an osteopathic structural exam other than those noted in the History and Physical/Consult. Vitals: Vital Signs Temp Pulse Resp BP Pulse Ox 03/23/22 16:12 87 18 92/49 95 03/23/22 14:23 99.4 F 88 18 112/56 98 Intake and Output 03/23/22 03/23/22 03/23/22 06:59 14:59 22:59 Other: Weight 45.359 kg Results CBC & Chem 7: 03/23/22 15:03 03/23/22 15:03 Labs: Abnormal Lab Results - Last 24 Hours (Table) 03/23/22 03/23/22 03/23/22 Range/Units 15:03 15:03 15:03 WBC 20.7 H (3.8-10.6) k/uL RBC 3.56 L (3.80-5.40) m/uL Hgb 8.9 L (11.4-16.0) gm/dL Hct 29.0 L (34.0-46.0) % MCHC 30.9 L (31.0-37.0) g/dL RDW 16.4 H (11.5-15.5) % Neutrophils # 18.5 H (1.3-7.7) k/uL APTT 21.6 L (22.0-30.0) sec BUN 25 H (7-17) mg/dL Creatinine 0.51 L (0.52-1.04) mg/dL Calcium 7.7 L (8.4-10.2) mg/dL AST 243 H (14-36) U/L ALT 191 H (4-34) U/L Total Protein 5.4 L (6.3-8.2) g/dL Albumin 3.3 L (3.5-5.0) g/dL Urine Protein (Negative) Urine Blood (Negative) Ur Leukocyte Esterase (Negative) Urine RBC (0-5) /hpf Urine WBC (0-5) /hpf Urine Bacteria (None) /hpf Urine Mucus (None) /hpf 03/23/22 Range/Units 17:49 WBC (3.8-10.6) k/uL RBC (3.80-5.40) m/uL Hgb (11.4-16.0) gm/dL Hct (34.0-46.0) % MCHC (31.0-37.0) g/dL RDW (11.5-15.5) % Neutrophils # (1.3-7.7) k/uL APTT (22.0-30.0) sec BUN (7-17) mg/dL Creatinine (0.52-1.04) mg/dL Calcium (8.4-10.2) mg/dL AST (14-36) U/L ALT (4-34) U/L Total Protein (6.3-8.2) g/dL Albumin (3.5-5.0) g/dL Urine Protein Trace H (Negative) Urine Blood Large H (Negative) Ur Leukocyte Esterase Moderate H (Negative) Urine RBC 12 H (0-5) /hpf Urine WBC 13 H (0-5) /hpf Urine Bacteria Rare H (None) /hpf Urine Mucus Rare H (None) /hpf
[2022-03-23] MEDS: HEPARIN SODIUM,PORCINE/PF 5,000 UNIT/0.5 ML SYRINGE SQ SCH (22:16)
[2022-03-23] MEDS: SENNOSIDES-DOCUSATE SODIUM 1 EACH TAB PO SCH (22:16)
[2022-03-23] MEDS: SODIUM CHLORIDE 0.9% 1,000 ML IV SCH (22:30)
--- NOTE | 2022-03-24 08:37 | XR ---
EXAMINATION TYPE: XR chest 2V DATE OF EXAM: 03/24/2022 COMPARISON: 03/23/2022 HISTORY: Pneumonia TECHNIQUE: Frontal and lateral views of the chest are obtained. FINDINGS: There has been no change in the ill-defined partially consolidative airspace opacification in the rig ht lung base consistent with pneumonic infiltrate. The left lung is clear. The heart, pulmonary vasculature, mediastinum and hilum are intact. IMPRESSION: No change in the right lung infiltrate most consistent with pneumonia. Clinical correlation short-ter m follow-up to resolution is recommended.
[2022-03-24 09:12] LABS: African American GFR (CKD) 106.7 (60.0-200.0); Anion Gap 9.9 mmol/L (10.00-18.00); BUN/Creat Ratio 36.8 Ratio (12.00-20.00); Blood Urea Nitrogen 18.4 mg/dL (9.0-27.0); Carbon Dioxide 23.1 mmol/L (20.0-27.5); Non-African American GFR(CKD) 92.1 (60.0-200.0); Potassium 3.7 mmol/L (3.5-5.5)
[2022-03-24 09:22] LABS: Basophils # (A) 0.06 X 10*3/uL (0.00-0.10); Basophils % (A) 0.3 %; Eosinophils # (A) 0.31 X 10*3/uL (0.04-0.35); Eosinophils % (A) 1.7 %; HCT 27.1 % (37.2-46.3); HGB 8.1 g/dL (12.0-15.0); Immature Grans, Automated 0.4 %; Lymphocytes # (A) 1.96 X 10*3/uL (0.90-5.00); Lymphocytes % (A) 10.6 %; MCH 24.9 pg (27.0-32.0); MCHC 29.9 g/dL (32.0-37.0); MCV 83.4 fL (80.0-97.0); Mean Platelet Volume 8.6 fL (9.5-12.2); Monocytes # (A) 0.65 X 10*3/uL (0.20-1.00); Monocytes % (A) 3.5 %; NRBC Per 100 WBC 0 /100 WBCS (0.0-0.0); Neutrophils # (A) 15.45 X 10*3/uL (1.80-7.70); Neutrophils % (A) 83.5 %; Platelet Count 332 X 10*3/uL (140-440); RBC 3.25 X 10*6/uL (4.10-5.20); RDW 16.8 % (11.5-14.5)
--- NOTE | 2022-03-24 09:27 | P.PN ---
Subjective Progress Note Date: 03/24/22 Pts breathing is doing well, her pain is not controlled. Gen: in mild distress from pain, lying on her side and in bed, cachectic Eyes: PERRL, no scleral injection or icterus HENT: normocephalic, atraumatic, good hearing acuity, moist mucous membranes Neck: no tracheal deviation, full range of motion Resp: good air exchange, breathing comfortably with no accessory muscle use, no tactile fremitus, right lower lobe crackles CVS: good distal perfusion x 4, no pitting edema, regular rate and rhythm GI: soft, NTTP, ND, no hepatosplenomegaly : no suprapubic tenderness, no CVAT, jones catheter not present MSK: no clubbing, no cyanosis, no noted contractures of extremities Skin: no noted rashes, petechiae; temperature of skin is appropriate Neuro: moving all extremities without signs of weakness, CN II-XII intact Psych: cooperative, depressed mood Labs and imaging as above Assessment/plan: Sepsis Community acquired pneumonia -Admit to inpatient, telemetry -Ceftriaxone, azithromycin -Follow up blood cultures -Palliative consult on Saturday if patient is still in the hospital -Oxygen as needed Intractable back pain Chronic back and neck pain with narcotic dependence -Morphine 4mg every 4 hours when necessary -[place] when necessary -Bowel regimen Severe protein calorie malnutrition -Dietitian consult History of Parkinson's History of Sjogren's History of lupus Dementia -Home medications reviewed and reconciled Patient is DO NOT RESUSCITATE/DO NOT INTUBATE DVT prophylaxis with heparin twice a day Objective - Vital Signs Vital signs: Vital Signs Temp 97.7 F 03/24/22 04:19 Pulse 68 03/24/22 04:19 Resp 14 03/24/22 04:19 BP 119/62 03/24/22 04:19 Pulse Ox 95 03/24/22 07:43 FiO2 Intake & Output 03/23/22 03/24/22 03/24/22 18:59 06:59 18:59 Intake Total 360 Output Total 400 Balance -40 Weight 45.359 kg 45.359 kg Intake: Oral 360 Output: Urine 400 Other: Voiding Method External Catheter - Labs CBC & Chem 7: 03/24/22 05:15 03/24/22 05:15 Labs: Abnormal Lab Results - Last 24 Hours (Table) 03/23/22 03/23/22 03/23/22 Range/Units 15:03 15:03 15:03 WBC 20.7 H (3.8-10.6) k/uL RBC 3.56 L (3.80-5.40) m/uL Hgb 8.9 L (11.4-16.0) gm/dL Hct 29.0 L (34.0-46.0) % MCH (27.0-32.0) pg MCHC 30.9 L (31.0-37.0) g/dL RDW 16.4 H (11.5-15.5) % MPV (9.5-12.2) fL Immature Gran # (0.00-0.04) X 10*3/uL Neutrophils # 18.5 H (1.3-7.7) k/uL APTT 21.6 L (22.0-30.0) sec Chloride (96-109) mmol/L Anion Gap (10.00-18.00) mmol/L BUN 25 H (7-17) mg/dL Creatinine 0.51 L (0.52-1.04) mg/dL BUN/Creatinine Ratio (12.00-20.00) Ratio Calcium 7.7 L (8.4-10.2) mg/dL AST 243 H (14-36) U/L ALT 191 H (4-34) U/L Total Protein 5.4 L (6.3-8.2) g/dL Albumin 3.3 L (3.5-5.0) g/dL Urine Protein (Negative) Urine Blood (Negative) Ur Leukocyte Esterase (Negative) Urine RBC (0-5) /hpf Urine WBC (0-5) /hpf Urine Bacteria (None) /hpf Urine Mucus (None) /hpf 03/23/22 03/24/22 03/24/22 Range/Units 17:49 05:15 05:15 WBC 18.50 H (3.8-10.6) k/uL RBC 3.25 L (3.80-5.40) m/uL Hgb 8.1 L (11.4-16.0) gm/dL Hct 27.1 L (34.0-46.0) % MCH 24.9 L (27.0-32.0) pg MCHC 29.9 L (31.0-37.0) g/dL RDW 16.8 H (11.5-15.5) % MPV 8.6 L (9.5-12.2) fL Immature Gran # 0.07 H (0.00-0.04) X 10*3/uL Neutrophils # 15.45 H (1.3-7.7) k/uL APTT (22.0-30.0) sec Chloride 110 H (96-109) mmol/L Anion Gap 9.90 L (10.00-18.00) mmol/L BUN (7-17) mg/dL Creatinine 0.5 L (0.52-1.04) mg/dL BUN/Creatinine Ratio 36.80 H (12.00-20.00) Ratio Calcium 8.0 L (8.4-10.2) mg/dL AST (14-36) U/L ALT (4-34) U/L Total Protein (6.3-8.2) g/dL Albumin (3.5-5.0) g/dL Urine Protein Trace H (Negative) Urine Blood Large H (Negative) Ur Leukocyte Esterase Moderate H (Negative) Urine RBC 12 H (0-5) /hpf Urine WBC 13 H (0-5) /hpf Urine Bacteria Rare H (None) /hpf Urine Mucus Rare H (None) /hpf Microbiology - Last 24 Hours (Table) 03/23/22 17:49 Urine Culture - Preliminary Urine,Voided
[2022-03-24] MEDS ORDERED: ACETAMINOPHEN TAB 500 MG TAB PO SCH (10:00)
[2022-03-24] MEDS: AZITHROMYCIN 500 MG TAB PO SCH (10:08)
[2022-03-24] MEDS: HEPARIN SODIUM,PORCINE/PF 5,000 UNIT/0.5 ML SYRINGE SQ SCH ×2 (10:08→21:27)
[2022-03-24] MEDS: SODIUM CHLORIDE 0.9% 1,000 ML IV SCH ×3 (10:08→21:30)
[2022-03-24] MEDS: SENNOSIDES-DOCUSATE SODIUM 1 EACH TAB PO SCH ×2 (10:09→21:28)
[2022-03-24] MEDS: HYDROcodone/APAP 10-325MG 1 EACH TAB PO SCH ×5 (10:09→23:48)
[2022-03-24] MEDS: predniSONE 10 MG TAB PO SCH (10:09)
[2022-03-24] MEDS: DULoxetine HCL 60 MG CAPSULE.DR PO SCH (10:09)
[2022-03-24] MEDS: busPIRone HCl 10 MG TAB PO SCH ×2 (10:10→21:27)
[2022-03-24] MEDS: LORATADINE 10 MG TAB PO SCH (10:10)
[2022-03-24] MEDS: PANTOPRAZOLE 40 MG TABLET PO SCH (10:10)
[2022-03-24] MEDS: rOPINIRole HCL 4 MG TABLET PO SCH ×3 (11:16→21:27)
[2022-03-24] MEDS: BACITRACIN OINT 1 EACH PACKET TOPICAL SCH ×3 (13:05→21:30)
[2022-03-24 13:12] VITALS: BMI 16.1
[2022-03-24] MEDS: ONDANSETRON ODT 4 MG TAB PO PRN (19:31)
[2022-03-24] MEDS: QUEtiapine 100 MG TAB PO SCH (21:26)
[2022-03-24] MEDS: MELATONIN 5 MG TABLET PO SCH (21:27)
[2022-03-25] MEDS: rOPINIRole HCL 4 MG TABLET PO SCH ×4 (04:48→20:45)
[2022-03-25] MEDS: HYDROcodone/APAP 10-325MG 1 EACH TAB PO SCH ×5 (04:48→20:45)
[2022-03-25] MEDS: AZITHROMYCIN 500 MG TAB PO SCH (07:51)
[2022-03-25] MEDS: busPIRone HCl 10 MG TAB PO SCH ×2 (07:51→22:49)
[2022-03-25] MEDS: LORATADINE 10 MG TAB PO SCH (07:51)
[2022-03-25] MEDS: SENNOSIDES-DOCUSATE SODIUM 1 EACH TAB PO SCH ×2 (07:51→22:51)
[2022-03-25] MEDS: PANTOPRAZOLE 40 MG TABLET PO SCH (07:51)
[2022-03-25] MEDS: HEPARIN SODIUM,PORCINE/PF 5,000 UNIT/0.5 ML SYRINGE SQ SCH ×2 (07:51→22:48)
[2022-03-25] MEDS: DULoxetine HCL 60 MG CAPSULE.DR PO SCH (07:51)
[2022-03-25] MEDS: predniSONE 10 MG TAB PO SCH (07:51)
[2022-03-25] MEDS: SODIUM CHLORIDE 0.9% 1,000 ML IV SCH ×2 (07:52→16:59)
[2022-03-25] MEDS: BACITRACIN OINT 1 EACH PACKET TOPICAL SCH ×4 (07:52→22:52)
--- NOTE | 2022-03-25 13:42 | P.PN ---
Subjective Progress Note Date: 03/25/22 Pts breathing is doing well, her pain is better controlled. Resting in bed comfortably. Gen: in mild distress from pain, lying on her side and in bed, cachectic Eyes: PERRL, no scleral injection or icterus HENT: normocephalic, atraumatic, good hearing acuity, moist mucous membranes Neck: no tracheal deviation, full range of motion Resp: good air exchange, breathing comfortably with no accessory muscle use, no tactile fremitus, right lower lobe crackles CVS: good distal perfusion x 4, no pitting edema, regular rate and rhythm GI: soft, NTTP, ND, no hepatosplenomegaly : no suprapubic tenderness, no CVAT, jones catheter not present MSK: no clubbing, no cyanosis, no noted contractures of extremities Skin: no noted rashes, petechiae; temperature of skin is appropriate Neuro: moving all extremities without signs of weakness, CN II-XII intact Psych: cooperative, depressed mood Labs and imaging as above Assessment/plan: Sepsis Community acquired pneumonia -Admit to inpatient, telemetry -Ceftriaxone, azithromycin -Follow up blood cultures -Palliative consult on Saturday if patient is still in the hospital -Oxygen as needed Intractable back pain Chronic back and neck pain with narcotic dependence -Morphine 4mg every 4 hours when necessary -[place] when necessary -Bowel regimen Severe protein calorie malnutrition -Dietitian consult History of Parkinson's History of Sjogren's History of lupus Dementia -Home medications reviewed and reconciled Patient is DO NOT RESUSCITATE/DO NOT INTUBATE DVT prophylaxis with heparin twice a day Objective - Vital Signs Vital signs: Vital Signs Temp 98.2 F 03/25/22 11:00 Pulse 70 03/25/22 11:00 Resp 18 03/25/22 11:00 BP 130/66 03/25/22 11:00 Pulse Ox 99 03/25/22 11:00 FiO2 Intake & Output 03/24/22 03/25/22 03/25/22 18:59 06:59 18:59 Intake Total 1200 Output Total 900 1000 200 Balance 300 -1000 -200 Weight 45.359 kg Intake: Intake, IV Titration 600 Amount Sodium Chloride 0.9% 1, 600 000 ml @ 75 mls/hr IV . [id number] STA Rx#:[id number] Oral 600 Output: Urine 900 1000 200 Other: Voiding Method External Catheter External Catheter External Catheter # Bowel Movements 1 2 - Labs CBC & Chem 7: 03/24/22 05:15 03/24/22 05:15 Labs: Microbiology - Last 24 Hours (Table) 03/23/22 17:49 Urine Culture - Preliminary Urine,Voided Gram Neg Bacilli 03/23/22 19:02 Blood Culture - Preliminary Blood No Growth after 24 hours 03/23/22 19:02 Blood Culture - Preliminary Blood No Growth after 24 hours
[2022-03-25] MEDS: ONDANSETRON ODT 4 MG TAB PO PRN (15:25)
[2022-03-25] MEDS: ALPRAZolam 0.5 MG TAB PO PRN (19:46)
[2022-03-25] MEDS: hydrOXYzine pamoate 25 MG CAP PO PRN (19:47)
[2022-03-25] MEDS: MELATONIN 5 MG TABLET PO SCH (22:51)
[2022-03-25] MEDS: QUEtiapine 100 MG TAB PO SCH (22:51)
[2022-03-26] MEDS: HYDROcodone/APAP 10-325MG 1 EACH TAB PO SCH ×6 (00:26→20:27)
[2022-03-26] MEDS: rOPINIRole HCL 4 MG TABLET PO SCH ×4 (04:01→21:47)
[2022-03-26] MEDS: hydrOXYzine pamoate 25 MG CAP PO PRN ×2 (04:01→17:10)
[2022-03-26] MEDS: SODIUM CHLORIDE 0.9% 1,000 ML IV SCH ×2 (07:21→14:34)
[2022-03-26] MEDS: ONDANSETRON ODT 4 MG TAB PO PRN (08:25)
[2022-03-26] MEDS: busPIRone HCl 10 MG TAB PO SCH ×2 (08:26→21:47)
[2022-03-26] MEDS: PANTOPRAZOLE 40 MG TABLET PO SCH (08:26)
[2022-03-26] MEDS: DULoxetine HCL 60 MG CAPSULE.DR PO SCH (08:26)
[2022-03-26] MEDS: predniSONE 10 MG TAB PO SCH (08:26)
[2022-03-26] MEDS: LORATADINE 10 MG TAB PO SCH (08:26)
[2022-03-26] MEDS: BACITRACIN OINT 1 EACH PACKET TOPICAL SCH ×4 (08:28→21:49)
[2022-03-26] MEDS: SENNOSIDES-DOCUSATE SODIUM 1 EACH TAB PO SCH ×3 (08:29→21:48)
[2022-03-26] MEDS: HEPARIN SODIUM,PORCINE/PF 5,000 UNIT/0.5 ML SYRINGE SQ SCH ×2 (08:35→21:46)
--- NOTE | 2022-03-26 12:12 | P.PN ---
Subjective Progress Note Date: 03/26/22 Pts breathing is doing well, her pain is better controlled. Resting in bed comfortably. Very anxious patient with limited capacity, has guardian and poor social situation. Previously on hospice before being removed from her [facility]. Hospice consult is pending. Gen: in mild distress from pain, lying on her side and in bed, cachectic Eyes: PERRL, no scleral injection or icterus HENT: normocephalic, atraumatic, good hearing acuity, moist mucous membranes Neck: no tracheal deviation, full range of motion Resp: good air exchange, breathing comfortably with no accessory muscle use, no tactile fremitus, right lower lobe crackles CVS: good distal perfusion x 4, no pitting edema, regular rate and rhythm GI: soft, NTTP, ND, no hepatosplenomegaly : no suprapubic tenderness, no CVAT, jones catheter not present MSK: no clubbing, no cyanosis, no noted contractures of extremities Skin: no noted rashes, petechiae; temperature of skin is appropriate Neuro: moving all extremities without signs of weakness, CN II-XII intact Psych: cooperative, depressed mood Labs and imaging as above Assessment/plan: Sepsis Community acquired pneumonia -Admit to inpatient, telemetry -Ceftriaxone, azithromycin -Follow up blood cultures -Hospice consult -Oxygen as needed Intractable back pain Chronic back and neck pain with narcotic dependence -Morphine 4mg every 4 hours when necessary -[place] when necessary -Bowel regimen Severe protein calorie malnutrition -Dietitian consult History of Parkinson's History of Sjogren's History of lupus Dementia -Home medications reviewed and reconciled Patient is DO NOT RESUSCITATE/DO NOT INTUBATE DVT prophylaxis with heparin twice a day Objective - Vital Signs Vital signs: Vital Signs Temp 97.8 F 03/26/22 11:58 Pulse 63 03/26/22 11:58 Resp 18 03/26/22 11:58 BP 110/64 03/26/22 11:58 Pulse Ox 98 03/26/22 11:58 FiO2 21 03/25/22 20:18 Intake & Output 03/25/22 03/26/22 03/26/22 18:59 06:59 18:59 Intake Total 360 296 Output Total 1200 1999 150 Balance -840 -1999 146 Intake: Oral 360 296 Output: Urine 1200 1999 150 Other: Voiding Method External Catheter External Catheter External Catheter # Bowel Movements 2 - Labs CBC & Chem 7: 03/24/22 05:15 03/24/22 05:15 Labs: Microbiology - Last 24 Hours (Table) 03/23/22 17:49 Urine Culture - Final Urine,Voided Escherichia coli 03/23/22 19:02 Blood Culture - Preliminary Blood No Growth after 48 hours 03/23/22 19:02 Blood Culture - Preliminary Blood No Growth after 48 hours
[2022-03-26] MEDS: ALPRAZolam 0.5 MG TAB PO PRN ×2 (13:21→21:51)
[2022-03-26] MEDS: MELATONIN 5 MG TABLET PO SCH (21:47)
[2022-03-26] MEDS: QUEtiapine 100 MG TAB PO SCH (21:48)
[2022-03-27] MEDS: HYDROcodone/APAP 10-325MG 1 EACH TAB PO SCH ×6 (02:11→21:22)
[2022-03-27] MEDS: ARTIFICIAL TEARS OINTMENT 3.5 GM TUBE BOTH EYES PRN (02:12)
[2022-03-27] MEDS: hydrOXYzine pamoate 25 MG CAP PO PRN ×3 (02:15→17:50)
[2022-03-27] MEDS: SODIUM CHLORIDE 0.9% 1,000 ML IV SCH ×2 (02:26→12:44)
[2022-03-27] MEDS: rOPINIRole HCL 4 MG TABLET PO SCH ×4 (04:23→21:23)
[2022-03-27] MEDS: ONDANSETRON ODT 4 MG TAB PO PRN (09:18)
[2022-03-27] MEDS: BACITRACIN OINT 1 EACH PACKET TOPICAL SCH ×4 (09:19→21:23)
[2022-03-27] MEDS: HEPARIN SODIUM,PORCINE/PF 5,000 UNIT/0.5 ML SYRINGE SQ SCH ×2 (09:19→21:23)
[2022-03-27] MEDS: busPIRone HCl 10 MG TAB PO SCH ×2 (09:19→21:22)
[2022-03-27] MEDS: predniSONE 10 MG TAB PO SCH (09:19)
[2022-03-27] MEDS: LORATADINE 10 MG TAB PO SCH (09:19)
[2022-03-27] MEDS: ALPRAZolam 0.5 MG TAB PO PRN ×3 (09:19→17:50)
[2022-03-27] MEDS: DULoxetine HCL 60 MG CAPSULE.DR PO SCH (09:19)
[2022-03-27] MEDS: PANTOPRAZOLE 40 MG TABLET PO SCH (09:20)
[2022-03-27] MEDS: ACETAMINOPHEN TAB 500 MG TAB PO PRN (11:03)
[2022-03-27] MEDS: MORPHINE SULFATE 4 MG/ML SYRINGE IVP PRN (13:53)
--- NOTE | 2022-03-27 17:03 | P.PN ---
Subjective Progress Note Date: 03/27/22 77-year-old woman with a history of Parkinson's, severe protein calorie malnutrition, Sjogren's, lupus, chronic back and neck pain with narcotic dependence presented from home with complaints of uncontrolled pain as well as shortness of breath. In the emergency room, patient was afebrile, 112/56, heart rate 88, 98% on room air. CBC demonstrates a white blood cell count 20.7, hemoglobin of 8.9, neutrophil predominance. Chemistries are unremarkable. Liver function test shows elevated liver function tests at 243, 191 of AST, ALT respectively, low total protein of 5.4, low albumin at 3.3. Coags were unremarkable. Troponin was less than 0.012. Ammonia level was 11. TSH was 1.47. Free T4 is 1.53. Free T3 is 5.0. UA shows trace protein, large blood, moderate leukocyte esterase, 12 red blood cells, 13 white blood cells, rare bacteria. COVID 19 was negative. EKG is of poor quality due to Parkinson's tremors during the reading, appears to be normal sinus rhythm. Chest x-ray demonstrates findings suggestive of right lower lobe pneumonia. Brain CT is negative for an acute intracranial process. Patient was seen and examined. No acute events overnight. Currently being treated for community acquired pneumonia. She reports improvement in her breathing. Requesting artificial tears for her Sjogren's. Requesting cream for itching. She has no other complaints. Gen: in mild distress from pain, lying on her side and in bed, cachectic Eyes: PERRL, no scleral injection or icterus HENT: normocephalic, atraumatic, good hearing acuity, moist mucous membranes Neck: no tracheal deviation, full range of motion Resp: good air exchange, breathing comfortably with no accessory muscle use, no tactile fremitus, right lower lobe crackles CVS: good distal perfusion x 4, no pitting edema, regular rate and rhythm GI: soft, NTTP, ND, no hepatosplenomegaly : no suprapubic tenderness, no CVAT, jones catheter not present MSK: no clubbing, no cyanosis, no noted contractures of extremities Skin: no noted rashes, petechiae; temperature of skin is appropriate Neuro: moving all extremities without signs of weakness, resting pin-rolling tremors Psych: cooperative, depressed mood #Sepsis #Community acquired pneumonia -Admit to inpatient, telemetry -Ceftriaxone, azithromycin -Blood culture negative at 72 hours -Hospice consult -Oxygen as needed #Intractable back pain #Chronic back and neck pain with narcotic dependence -Morphine 4mg every 4 hours when necessary -[place] when necessary -Bowel regimen #Severe protein calorie malnutrition -Dietitian consult #History of Parkinson's #History of Sjogren's #History of lupus #Dementia -Home medications reviewed and reconciled Patient is DO NOT RESUSCITATE/DO NOT INTUBATE DVT prophylaxis with heparin twice a day Objective - Vital Signs Vital signs: Vital Signs Temp 98.3 F 03/27/22 11:57 Pulse 72 03/27/22 11:57 Resp 18 03/27/22 11:57 BP 152/70 03/27/22 11:57 Pulse Ox 94 L 03/27/22 11:57 FiO2 21 03/26/22 19:41 Intake & Output 03/26/22 03/27/22 03/27/22 18:59 06:59 18:59 Intake Total 888 532 Output Total 350 1200 Balance 538 -1200 532 Intake: Oral 888 532 Output: Urine 350 1200 Other: Voiding Method External Catheter External Catheter External Catheter - Labs CBC & Chem 7: 03/24/22 05:15 03/24/22 05:15 Labs: Microbiology - Last 24 Hours (Table) 03/23/22 08:05 Sputum Culture - Preliminary Sputum 03/23/22 19:02 Blood Culture - Preliminary Blood No Growth after 72 hours 03/23/22 19:02 Blood Culture - Preliminary Blood No Growth after 72 hours
[2022-03-27] MEDS: SENNOSIDES-DOCUSATE SODIUM 1 EACH TAB PO SCH (21:23)
[2022-03-27] MEDS: QUEtiapine 100 MG TAB PO SCH (21:23)
[2022-03-27] MEDS: MELATONIN 5 MG TABLET PO SCH (21:23)
[2022-03-28] MEDS: HYDROcodone/APAP 10-325MG 1 EACH TAB PO SCH ×6 (03:32→20:08)
[2022-03-28] MEDS: rOPINIRole HCL 4 MG TABLET PO SCH ×4 (04:44→20:09)
[2022-03-28] MEDS: hydrOXYzine pamoate 25 MG CAP PO PRN (04:46)
[2022-03-28] MEDS: PANTOPRAZOLE 40 MG TABLET PO SCH (08:42)
[2022-03-28] MEDS: SENNOSIDES-DOCUSATE SODIUM 1 EACH TAB PO SCH ×2 (08:44→20:10)
[2022-03-28] MEDS: HEPARIN SODIUM,PORCINE/PF 5,000 UNIT/0.5 ML SYRINGE SQ SCH ×2 (08:45→20:08)
[2022-03-28] MEDS: predniSONE 10 MG TAB PO SCH (08:45)
[2022-03-28] MEDS: BACITRACIN OINT 1 EACH PACKET TOPICAL SCH ×4 (08:45→20:10)
[2022-03-28] MEDS: LORATADINE 10 MG TAB PO SCH (08:45)
[2022-03-28] MEDS: DULoxetine HCL 60 MG CAPSULE.DR PO SCH (08:50)
[2022-03-28] MEDS: busPIRone HCl 10 MG TAB PO SCH ×2 (08:51→20:09)
[2022-03-28] MEDS: MORPHINE SULFATE 4 MG/ML SYRINGE IVP PRN ×2 (10:38→18:27)
[2022-03-28] MEDS: ARTIFICIAL TEARS OINTMENT 3.5 GM TUBE BOTH EYES PRN (13:24)
[2022-03-28] MEDS ORDERED: ARTIFICIAL TEARS-HYPROMELLOSE DROPS 15 ML BTL BOTH EYES PRN (14:06)
--- NOTE | 2022-03-28 16:35 | P.PN ---
Subjective Progress Note Date: 03/28/22 77-year-old woman with a history of Parkinson's, severe protein calorie malnutrition, Sjogren's, lupus, chronic back and neck pain with narcotic dependence presented from home with complaints of uncontrolled pain as well as shortness of breath. In the emergency room, patient was afebrile, 112/56, heart rate 88, 98% on room air. CBC demonstrates a white blood cell count 20.7, hemoglobin of 8.9, neutrophil predominance. Chemistries are unremarkable. Liver function test shows elevated liver function tests at 243, 191 of AST, ALT respectively, low total protein of 5.4, low albumin at 3.3. Coags were unremarkable. Troponin was less than 0.012. Ammonia level was 11. TSH was 1.47. Free T4 is 1.53. Free T3 is 5.0. UA shows trace protein, large blood, moderate leukocyte esterase, 12 red blood cells, 13 white blood cells, rare bacteria. COVID 19 was negative. EKG is of poor quality due to Parkinson's tremors during the reading, appears to be normal sinus rhythm. Chest x-ray demonstrates findings suggestive of right lower lobe pneumonia. Brain CT is negative for an acute intracranial process. Patient was seen and examined. No acute events overnight. Currently being treated for community acquired pneumonia. She reports improvement in her breathing. Requesting artificial tears for her Sjogren's. Requesting cream for itching. She has no other complaints. Gen: in mild distress from pain, lying on her side and in bed, cachectic Eyes: PERRL, no scleral injection or icterus HENT: normocephalic, atraumatic, good hearing acuity, moist mucous membranes Neck: no tracheal deviation, full range of motion Resp: good air exchange, breathing comfortably with no accessory muscle use, no tactile fremitus, right lower lobe crackles CVS: good distal perfusion x 4, no pitting edema, regular rate and rhythm GI: soft, NTTP, ND, no hepatosplenomegaly : no suprapubic tenderness, no CVAT, jones catheter not present MSK: no clubbing, no cyanosis, no noted contractures of extremities Skin: no noted rashes, petechiae; temperature of skin is appropriate Neuro: moving all extremities without signs of weakness, resting pin-rolling tremors Psych: cooperative, depressed mood #Sepsis #Community acquired pneumonia -Admit to inpatient, telemetry -Ceftriaxone, azithromycin -Blood culture negative at 96 hours -Hospice consult -Oxygen as needed #Intractable back pain #Chronic back and neck pain with narcotic dependence -Morphine 4mg every 4 hours when necessary -[place] when necessary -Bowel regimen #Severe protein calorie malnutrition -Dietitian consult #History of Parkinson's #History of Sjogren's #History of lupus #Dementia -Home medications reviewed and reconciled Public guardian working on securing placement. Medically stable. Patient is DO NOT RESUSCITATE/DO NOT INTUBATE DVT prophylaxis with heparin twice a day Objective - Vital Signs Vital signs: Vital Signs Temp 98.0 F 03/28/22 12:46 Pulse 70 03/28/22 12:46 Resp 18 03/28/22 12:46 BP 149/82 03/28/22 12:46 Pulse Ox 100 03/28/22 12:46 FiO2 21 03/27/22 19:42 Intake & Output 03/27/22 03/28/22 03/28/22 18:59 06:59 18:59 Intake Total 2128 70 Balance 2128 70 Weight 45.359 kg Intake: Intake, IV Titration 1300 50 Amount Sodium Chloride 0.9% 1, 1200 000 ml @ 100 mls/hr IV . Q10H [facility] Rx#:[id number] cefTRIAXone 2 gm In 100 50 Sodium Chloride 0.9% 50 ml @ 100 mls/hr IVPB Q24H [facility] Rx#:[id number] Oral 828 20 Other: Voiding Method External Catheter External Catheter - Labs CBC & Chem 7: 03/24/22 05:15 03/24/22 05:15 Labs: Microbiology - Last 24 Hours (Table) 03/23/22 08:05 Gram Stain - Preliminary Sputum Sputum Culture - Preliminary 03/23/22 19:02 Blood Culture - Preliminary Blood No Growth after 96 hours 03/23/22 19:02 Blood Culture - Preliminary Blood No Growth after 96 hours
[2022-03-28] MEDS: ALPRAZolam 0.5 MG TAB PO PRN ×2 (17:16→20:08)
[2022-03-28] MEDS: MELATONIN 5 MG TABLET PO SCH (20:09)
[2022-03-28] MEDS: QUEtiapine 100 MG TAB PO SCH (20:10)
[2022-03-29] MEDS: HYDROcodone/APAP 10-325MG 1 EACH TAB PO SCH ×7 (03:37→22:59)
[2022-03-29] MEDS: rOPINIRole HCL 4 MG TABLET PO SCH ×5 (03:54→22:58)
[2022-03-29] MEDS: PANTOPRAZOLE 40 MG TABLET PO SCH (07:42)
[2022-03-29] MEDS: HEPARIN SODIUM,PORCINE/PF 5,000 UNIT/0.5 ML SYRINGE SQ SCH ×2 (09:30→20:25)
[2022-03-29] MEDS: DULoxetine HCL 60 MG CAPSULE.DR PO SCH (09:31)
[2022-03-29] MEDS: predniSONE 10 MG TAB PO SCH (09:32)
[2022-03-29] MEDS: LORATADINE 10 MG TAB PO SCH (09:32)
[2022-03-29] MEDS: SENNOSIDES-DOCUSATE SODIUM 1 EACH TAB PO SCH ×2 (09:32→20:34)
[2022-03-29] MEDS: MORPHINE SULFATE 4 MG/ML SYRINGE IVP PRN ×4 (09:39→22:17)
[2022-03-29] MEDS: busPIRone HCl 10 MG TAB PO SCH ×2 (09:39→20:25)
[2022-03-29] MEDS: hydrOXYzine pamoate 25 MG CAP PO PRN (09:39)
[2022-03-29] MEDS: BACITRACIN OINT 1 EACH PACKET TOPICAL SCH ×4 (11:47→20:25)
--- NOTE | 2022-03-29 15:19 | P.PN ---
Subjective Progress Note Date: 03/29/22 77-year-old woman with a history of Parkinson's, severe protein calorie malnutrition, Sjogren's, lupus, chronic back and neck pain with narcotic dependence presented from home with complaints of uncontrolled pain as well as shortness of breath. In the emergency room, patient was afebrile, 112/56, heart rate 88, 98% on room air. CBC demonstrates a white blood cell count 20.7, hemoglobin of 8.9, neutrophil predominance. Chemistries are unremarkable. Liver function test shows elevated liver function tests at 243, 191 of AST, ALT respectively, low total protein of 5.4, low albumin at 3.3. Coags were unremarkable. Troponin was less than 0.012. Ammonia level was 11. TSH was 1.47. Free T4 is 1.53. Free T3 is 5.0. UA shows trace protein, large blood, moderate leukocyte esterase, 12 red blood cells, 13 white blood cells, rare bacteria. COVID 19 was negative. EKG is of poor quality due to Parkinson's tremors during the reading, appears to be normal sinus rhythm. Chest x-ray demonstrates findings suggestive of right lower lobe pneumonia. Brain CT is negative for an acute intracranial process. Patient was seen and examined. No acute events overnight. Currently being treated for community acquired pneumonia. She reports improvement in her breathing. Patient reports worsening lower back pain. She has no other complaints. Gen: in mild distress from pain, lying on her side and in bed, cachectic Eyes: PERRL, no scleral injection or icterus HENT: normocephalic, atraumatic, good hearing acuity, moist mucous membranes Neck: no tracheal deviation, full range of motion Resp: good air exchange, breathing comfortably with no accessory muscle use, no tactile fremitus, right lower lobe crackles CVS: good distal perfusion x 4, no pitting edema, regular rate and rhythm GI: soft, NTTP, ND, no hepatosplenomegaly : no suprapubic tenderness, no CVAT, jones catheter not present MSK: no clubbing, no cyanosis, no noted contractures of extremities Skin: no noted rashes, petechiae; temperature of skin is appropriate Neuro: moving all extremities without signs of weakness, resting pin-rolling tremors Psych: cooperative, depressed mood #Sepsis #Community acquired pneumonia -Admit to inpatient, telemetry -Ceftriaxone, azithromycin -Blood culture negative at 96 hours -Hospice consult -Oxygen as needed #Intractable back pain #Chronic back and neck pain with narcotic dependence -Morphine 4mg every 3 hours when necessary -[place] when necessary -Bowel regimen #Severe protein calorie malnutrition -Dietitian consult #History of Parkinson's #History of Sjogren's #History of lupus #Dementia -Home medications reviewed and reconciled Public guardian working on securing placement. Medically stable. Patient is DO NOT RESUSCITATE/DO NOT INTUBATE DVT prophylaxis with heparin twice a day Objective - Vital Signs Vital signs: Vital Signs Temp 97.8 F 03/29/22 12:16 Pulse 71 03/29/22 12:16 Resp 18 03/29/22 12:16 BP 150/68 03/29/22 12:16 Pulse Ox 95 03/29/22 12:16 FiO2 21 03/27/22 19:42 Intake & Output 03/28/22 03/29/22 03/29/22 18:59 06:59 18:59 Output Total 1 850 750 Balance -1 -850 -750 Weight 45.359 kg Output: Urine 1 850 750 Other: Voiding Method External Catheter # Voids 4 - Labs CBC & Chem 7: 03/24/22 05:15 03/24/22 05:15 Labs: Microbiology - Last 24 Hours (Table) 03/23/22 08:05 Gram Stain - Preliminary Sputum Sputum Culture - Preliminary Lidia albicans Presumptive Staph aureus 03/23/22 19:02 Blood Culture - Preliminary Blood No Growth after 120 hours 03/23/22 19:02 Blood Culture - Preliminary Blood No Growth after 120 hours
[2022-03-29] MEDS: ALPRAZolam 0.5 MG TAB PO PRN ×2 (17:09→22:59)
[2022-03-29] MEDS: MELATONIN 5 MG TABLET PO SCH (20:24)
[2022-03-29] MEDS: QUEtiapine 100 MG TAB PO SCH (20:25)
[2022-03-30] MEDS ORDERED: hydrOXYzine pamoate 25 MG CAP ONE (03:00)
[2022-03-30] MEDS ORDERED: HYDROcodone/APAP 10-325MG 1 EACH TAB ONE (03:00)
[2022-03-30] MEDS: HYDROcodone/APAP 10-325MG 1 EACH TAB PO SCH ×5 (05:13→20:53)
[2022-03-30] MEDS: rOPINIRole HCL 4 MG TABLET PO SCH ×3 (05:13→20:51)
[2022-03-30] MEDS: HEPARIN SODIUM,PORCINE/PF 5,000 UNIT/0.5 ML SYRINGE SQ SCH ×2 (07:33→20:53)
[2022-03-30] MEDS: DULoxetine HCL 60 MG CAPSULE.DR PO SCH (07:33)
[2022-03-30] MEDS: busPIRone HCl 10 MG TAB PO SCH ×2 (07:33→20:51)
[2022-03-30] MEDS: BACITRACIN OINT 1 EACH PACKET TOPICAL SCH ×4 (07:33→20:52)
[2022-03-30] MEDS: predniSONE 10 MG TAB PO SCH (07:33)
[2022-03-30] MEDS: LORATADINE 10 MG TAB PO SCH (07:34)
[2022-03-30] MEDS: SENNOSIDES-DOCUSATE SODIUM 1 EACH TAB PO SCH ×2 (07:34→20:52)
[2022-03-30] MEDS: PANTOPRAZOLE 40 MG TABLET PO SCH (07:34)
[2022-03-30] MEDS: ONDANSETRON ODT 4 MG TAB PO PRN ×2 (07:36→15:02)
[2022-03-30] MEDS: MORPHINE SULFATE 4 MG/ML SYRINGE IVP PRN ×2 (09:48→22:22)
[2022-03-30] MEDS: ALPRAZolam 0.5 MG TAB PO PRN (12:51)
[2022-03-30] MEDS: MELATONIN 5 MG TABLET PO SCH (20:51)
[2022-03-30] MEDS: QUEtiapine 100 MG TAB PO SCH (20:51)
[2022-03-31] MEDS: HYDROcodone/APAP 10-325MG 1 EACH TAB PO SCH ×7 (00:47→23:46)
[2022-03-31] MEDS: MORPHINE SULFATE 4 MG/ML SYRINGE IVP PRN ×3 (03:18→17:07)
[2022-03-31] MEDS: rOPINIRole HCL 4 MG TABLET PO SCH ×4 (05:28→20:32)
[2022-03-31] MEDS: hydrOXYzine pamoate 25 MG CAP PO PRN (05:33)
--- NOTE | 2022-03-31 08:23 | P.PN ---
Subjective Progress Note Date: 03/30/22 77-year-old woman with a history of Parkinson's, severe protein calorie malnutrition, Sjogren's, lupus, chronic back and neck pain with narcotic dependence presented from home with complaints of uncontrolled pain as well as shortness of breath. In the emergency room, patient was afebrile, 112/56, heart rate 88, 98% on room air. CBC demonstrates a white blood cell count 20.7, hemoglobin of 8.9, neutrophil predominance. Chemistries are unremarkable. Liver function test shows elevated liver function tests at 243, 191 of AST, ALT respectively, low total protein of 5.4, low albumin at 3.3. Coags were unremarkable. Troponin was less than 0.012. Ammonia level was 11. TSH was 1.47. Free T4 is 1.53. Free T3 is 5.0. UA shows trace protein, large blood, moderate leukocyte esterase, 12 red blood cells, 13 white blood cells, rare bacteria. COVID 19 was negative. EKG is of poor quality due to Parkinson's tremors during the reading, appears to be normal sinus rhythm. Chest x-ray demonstrates findings suggestive of right lower lobe pneumonia. Brain CT is negative for an acute intracranial process. Patient was seen and examined. No acute events overnight. Currently being treated for community acquired pneumonia. She reports improvement in her breathing. Patient reports worsening lower back pain. She has no other complaints. Note: This is a late note entry for 03/30. Patient was seen around 5PM on 03/30. Gen: in mild distress from pain, lying on her side and in bed, cachectic Eyes: PERRL, no scleral injection or icterus HENT: normocephalic, atraumatic, good hearing acuity, moist mucous membranes Neck: no tracheal deviation, full range of motion Resp: good air exchange, breathing comfortably with no accessory muscle use, no tactile fremitus, right lower lobe crackles CVS: good distal perfusion x 4, no pitting edema, regular rate and rhythm GI: soft, NTTP, ND, no hepatosplenomegaly : no suprapubic tenderness, no CVAT, jones catheter not present MSK: no clubbing, no cyanosis, no noted contractures of extremities Skin: no noted rashes, petechiae; temperature of skin is appropriate Neuro: moving all extremities without signs of weakness, resting pin-rolling tremors Psych: cooperative, depressed mood #Sepsis #Community acquired pneumonia -Admit to inpatient, telemetry -Ceftriaxone, azithromycin -Blood culture negative at 96 hours -Hospice consult -Oxygen as needed #Intractable back pain #Chronic back and neck pain with narcotic dependence -Morphine 4mg every 3 hours when necessary -[place] when necessary -Bowel regimen #Severe protein calorie malnutrition -Dietitian consult #History of Parkinson's #History of Sjogren's #History of lupus #Dementia -Home medications reviewed and reconciled Public guardian working on securing placement. Medically stable. Patient is DO NOT RESUSCITATE/DO NOT INTUBATE DVT prophylaxis with heparin twice a day Objective - Vital Signs Vital signs: Vital Signs Temp 97.4 F L 03/31/22 05:00 Pulse 69 03/31/22 05:00 Resp 18 03/31/22 05:00 BP 102/54 03/31/22 05:00 Pulse Ox 92 L 03/31/22 05:00 FiO2 21 03/27/22 19:42 Intake & Output 03/30/22 03/31/22 03/31/22 18:59 06:59 18:59 Output Total 400 750 Balance -400 -750 Weight 45.359 kg Output: Urine 400 750 Other: Voiding Method Incontinent Incontinent External Catheter External Catheter - Labs CBC & Chem 7: 03/24/22 05:15 03/24/22 05:15 Labs: Microbiology - Last 24 Hours (Table) 03/23/22 08:05 Gram Stain - Final Sputum Sputum Culture - Final Lidia albicans Methicillin resist S. aureus
[2022-03-31] MEDS: DULoxetine HCL 60 MG CAPSULE.DR PO SCH (09:22)
[2022-03-31] MEDS: HEPARIN SODIUM,PORCINE/PF 5,000 UNIT/0.5 ML SYRINGE SQ SCH ×2 (09:23→20:32)
[2022-03-31] MEDS: LORATADINE 10 MG TAB PO SCH (09:23)
[2022-03-31] MEDS: PANTOPRAZOLE 40 MG TABLET PO SCH (09:23)
[2022-03-31] MEDS: predniSONE 10 MG TAB PO SCH (09:23)
[2022-03-31] MEDS: ALPRAZolam 0.5 MG TAB PO PRN ×2 (09:23→18:13)
[2022-03-31] MEDS: BACITRACIN OINT 1 EACH PACKET TOPICAL SCH ×4 (09:23→23:53)
[2022-03-31] MEDS: busPIRone HCl 10 MG TAB PO SCH ×2 (09:23→20:32)
[2022-03-31] MEDS: SENNOSIDES-DOCUSATE SODIUM 1 EACH TAB PO SCH ×2 (09:28→20:32)
[2022-03-31] MEDS: LORazepam 1 MG/0.5 ML VIAL IV PRN (11:36)
--- NOTE | 2022-03-31 12:57 | P.PN ---
Subjective Progress Note Date: 03/31/22 77-year-old woman with a history of Parkinson's, severe protein calorie malnutrition, Sjogren's, lupus, chronic back and neck pain with narcotic dependence presented from home with complaints of uncontrolled pain as well as shortness of breath. In the emergency room, patient was afebrile, 112/56, heart rate 88, 98% on room air. CBC demonstrates a white blood cell count 20.7, hemoglobin of 8.9, neutrophil predominance. Chemistries are unremarkable. Liver function test shows elevated liver function tests at 243, 191 of AST, ALT respectively, low total protein of 5.4, low albumin at 3.3. Coags were unremarkable. Troponin was less than 0.012. Ammonia level was 11. TSH was 1.47. Free T4 is 1.53. Free T3 is 5.0. UA shows trace protein, large blood, moderate leukocyte esterase, 12 red blood cells, 13 white blood cells, rare bacteria. COVID 19 was negative. EKG is of poor quality due to Parkinson's tremors during the reading, appears to be normal sinus rhythm. Chest x-ray demonstrates findings suggestive of right lower lobe pneumonia. Brain CT is negative for an acute intracranial process. Patient was seen and examined. No acute events overnight. Currently being treated for community acquired pneumonia. She reports improvement in her breathing. Patient reports worsening lower back pain. She has no other complaints. Note: This is a late note entry for 03/30. Patient was seen around 5PM on 03/30. Gen: in mild distress from pain, lying on her side and in bed, cachectic Eyes: PERRL, no scleral injection or icterus HENT: normocephalic, atraumatic, good hearing acuity, moist mucous membranes Neck: no tracheal deviation, full range of motion Resp: good air exchange, breathing comfortably with no accessory muscle use, no tactile fremitus, right lower lobe crackles CVS: good distal perfusion x 4, no pitting edema, regular rate and rhythm GI: soft, NTTP, ND, no hepatosplenomegaly : no suprapubic tenderness, no CVAT, jones catheter not present MSK: no clubbing, no cyanosis, no noted contractures of extremities Skin: no noted rashes, petechiae; temperature of skin is appropriate Neuro: moving all extremities without signs of weakness, resting pin-rolling tremors Psych: cooperative, depressed mood #Sepsis #Community acquired pneumonia #MRSA sputum culture -Admit to inpatient, telemetry -Ceftriaxone, azithromycin -Blood culture negative -Consult ID for MRSA sputum culture -Hospice consult -Oxygen as needed #Intractable back pain #Chronic back and neck pain with narcotic dependence -Morphine 4mg every 3 hours when necessary -[place] when necessary -Bowel regimen #Severe protein calorie malnutrition -Dietitian consult #History of Parkinson's #History of Sjogren's #History of lupus #Dementia -Home medications reviewed and reconciled Public guardian working on securing placement. Medically stable. Patient is DO NOT RESUSCITATE/DO NOT INTUBATE DVT prophylaxis with heparin twice a day Objective - Vital Signs Vital signs: Vital Signs Temp 97.6 F 03/31/22 12:54 Pulse 65 03/31/22 12:54 Resp 18 03/31/22 12:54 BP 103/59 03/31/22 12:54 Pulse Ox 98 03/31/22 12:54 FiO2 21 03/27/22 19:42 Intake & Output 03/30/22 03/31/22 03/31/22 18:59 06:59 18:59 Intake Total 296 Output Total 400 750 Balance -400 -750 296 Weight 45.359 kg Intake: Oral 296 Output: Urine 400 750 Other: Voiding Method Incontinent Incontinent Incontinent External Catheter External Catheter External Catheter - Labs CBC & Chem 7: 03/24/22 05:15 03/24/22 05:15 Labs: Microbiology - Last 24 Hours (Table) 03/23/22 08:05 Gram Stain - Final Sputum Sputum Culture - Final Lidia albicans Methicillin resist S. aureus
[2022-03-31] MEDS: ACETAMINOPHEN TAB 500 MG TAB PO PRN (13:11)
[2022-03-31] MEDS ORDERED: VANCOMYCIN IV PER PHARMACY 1 EACH MISC MISCELLANE PRN (15:40)
[2022-03-31] MEDS ORDERED: VANCOMYCIN 750 MG in SODIUM CHLORIDE 0.9% 250 ML IVPB ONE (16:00)
[2022-03-31 17:24] LABS: African American GFR (CKD) >90 (>60 ml/min/1.73 sqM); Non-African American GFR(CKD) >90 (>60 ml/min/1.73 sqM)
[2022-03-31] MEDS: QUEtiapine 100 MG TAB PO SCH (20:32)
[2022-03-31] MEDS: MELATONIN 5 MG TABLET PO SCH (20:32)
[2022-04-01] MEDS: rOPINIRole HCL 4 MG TABLET PO SCH ×4 (04:00→20:42)
[2022-04-01] MEDS: VANCOMYCIN 750 MG in SODIUM CHLORIDE 0.9% 250 ML IVPB SCH ×2 (04:00→16:04)
[2022-04-01] MEDS: HYDROcodone/APAP 10-325MG 1 EACH TAB PO SCH ×5 (04:00→20:41)
[2022-04-01] MEDS: ALPRAZolam 0.5 MG TAB PO PRN ×4 (04:02→17:22)
[2022-04-01] MEDS: MORPHINE SULFATE 4 MG/ML SYRINGE IVP PRN ×4 (04:50→19:20)
--- NOTE | 2022-04-01 07:27 | P.CONS ---
History of Present Illness - Reason for Consult Consult date: 03/31/22 - History of Present Illness Patient is a 77-year-old female presented to the hospital more than a week ago for evaluation of frequent falls no history of any syncope or head trauma in this patient who do have history of lupus Parkinson disease patient on presentation to the hospital was afebrile she did have 1 low-grade fever 100.7 on 03/27/2022 patient is currently not hypoxic or need for supplemental oxygen patient did have a white count of 20,000 on admission repeat is 18.50 on 03/24/2022 did have a positive UA on 03/23/2022 urine culture with the E. coli sputum culture those were obtained about a week ago on 03/23/2022 finalized a week later yesterday afternoon with MRSA that has prompted this infectious disease consultation patient did have a chest x-ray on 03/24/2022 no change in the right lung infiltrate most consistent with pneumonia and this patient has received Rocephin and Zithromax and completed her treatment patient is currently breathing comfortably patient denies having any chest pain she did have occasional cough however not bring up any more sputum no hemoptysis patient denies having any nausea no vomiting no abdominal pain no diarrhea Past Medical History Additional Past Medical History / Comment(s): parkinsons, lupus, gastroparesis, 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 Year Discovered:: 03/30/22 MDRO Source:: MRSA sputum Past Surgical History: Hysterectomy, Tonsillectomy Past Anesthesia/Blood Transfusion Reactions: No Reported Reaction Past Psychological History: Anxiety Smoking Status: Never smoker Past Alcohol Use History: None Reported Past Drug Use History: None Reported Medications and Allergies Home Medications Medication Instructions Recorded Confirmed Type ALPRAZolam [Xanax] 0.5 mg PO Q4H PRN 03/14/22 03/23/22 History Acetaminophen Tab [Tylenol Tab] 1,000 mg PO Q12H 03/14/22 03/23/22 History Buprenorphine [[place] 5 MCG/HR] 1 patch TRANSDERM Q7D 03/14/22 03/23/22 History DULoxetine HCL [Cymbalta] 60 mg PO DAILY 03/14/22 03/23/22 History Fexofenadine HCl [[place] Allergy] 180 mg PO DAILY 03/14/22 03/23/22 History HYDROcodone/APAP 10-325MG [[place] 1 tab PO Q4HR 03/14/22 03/23/22 History 10-325] Melatonin 5 mg PO HS 03/14/22 03/23/22 History Omeprazole [PriLOSEC] 40 mg PO DAILY 03/14/22 03/23/22 History Ondansetron Odt [Zofran Odt] 4 mg PO Q6H PRN 03/14/22 03/23/22 History QUEtiapine [SEROquel] 100 mg PO HS 03/14/22 03/23/22 History busPIRone HCl [Buspar] 20 mg PO BID 03/14/22 03/23/22 History diphenhydrAMINE HCL [Benadryl] 25 - 50 mg PO Q4-6H 03/14/22 03/23/22 History hydrOXYzine pamoate [Vistaril] 25 mg PO Q6H PRN 03/14/22 03/23/22 History predniSONE 10 mg PO DAILY 03/14/22 03/23/22 History rOPINIRole HCL [Requip] 4 mg PO TID@0400,1200,2000 03/14/22 03/23/22 History rOPINIRole HCL [Requip] 8 mg PO DAILY@0800 03/14/22 03/23/22 History Allergies Allergy/AdvReac Type Severity Reaction Status Date / Time carbidopa [From Sinemet] Allergy Unknown Verified 03/23/22 16:55 levodopa [From Sinemet] Allergy Unknown Verified 03/23/22 16:55 levofloxacin [From Levaquin] Allergy Unknown Verified 03/23/22 16:55 metoclopramide [From Reglan] Allergy Unknown Verified 03/23/22 16:55 Physical Exam Vitals: Vital Signs Temp Pulse Resp BP Pulse Ox 03/31/22 12:54 97.6 F 65 18 103/59 98 03/31/22 05:00 97.4 F L 69 18 102/54 92 L 03/30/22 20:00 76 03/30/22 18:07 98.4 F 76 18 121/67 96 Intake and Output 03/31/22 03/31/22 03/31/22 06:59 14:59 22:59 Intake Total 592 Balance 592 Intake: Oral 592 Other: Voiding Method Incontinent External Catheter # Voids 2 Results CBC & Chem 7: 03/24/22 05:15 03/31/22 16:42 Labs: Microbiology - Last 24 Hours (Table) 03/23/22 08:05 Gram Stain - Final Sputum Sputum Culture - Final Lidia albicans Methicillin resist S. aureus Assessment and Plan Plan: 1patient with a positive sputum culture that was obtained about a week ago, back positive with MRSA in this patient who did have a evidence of pneumonia on chest x-ray and has been treated for possible community-acquired pneumonia with Rocephin and Zithromax with a question of possible colonization versus true pathogen. 2-we will repeat a chest x-ray CRP and procalcitonin 3-empirically add vancomycin while awaiting further work-up to be completed We will follow on clinical condition and cultures to further adjust medication if needed Thank you for this consultation will follow this patient along with you
[2022-04-01 07:38] LABS: African American GFR (CKD) >90 (>60 ml/min/1.73 sqM); C Reactive Protein <0.5 mg/dL (<1.0); Non-African American GFR(CKD) >90 (>60 ml/min/1.73 sqM)
[2022-04-01] MEDS: hydrOXYzine pamoate 25 MG CAP PO PRN (08:24)
[2022-04-01] MEDS: predniSONE 10 MG TAB PO SCH (08:24)
[2022-04-01] MEDS: LORATADINE 10 MG TAB PO SCH (08:25)
[2022-04-01] MEDS: DULoxetine HCL 60 MG CAPSULE.DR PO SCH (08:25)
[2022-04-01] MEDS: busPIRone HCl 10 MG TAB PO SCH ×2 (08:25→20:40)
[2022-04-01] MEDS: PANTOPRAZOLE 40 MG TABLET PO SCH (08:25)
[2022-04-01] MEDS: SENNOSIDES-DOCUSATE SODIUM 1 EACH TAB PO SCH ×2 (08:25→20:40)
[2022-04-01] MEDS: HEPARIN SODIUM,PORCINE/PF 5,000 UNIT/0.5 ML SYRINGE SQ SCH ×2 (08:25→20:40)
[2022-04-01] MEDS: BACITRACIN OINT 1 EACH PACKET TOPICAL SCH ×4 (08:31→20:42)
[2022-04-01 08:36] LABS: ALT 38 U/L (4-34); AST 28 U/L (14-36); Albumin 3.2 g/dL (3.5-5.0); Albumin/Globulin Ratio 1.5; Alkaline Phosphatase 60 U/L (38-126); Anion Gap 8 mmol/L; Blood Urea Nitrogen 20 mg/dL (7-17); Calcium 8.1 mg/dL (8.4-10.2); Carbon Dioxide 26 mmol/L (22-30); Chloride 103 mmol/L (98-107); Globulin 2.1 g/dL; Glucose 94 mg/dL (74-99); Potassium 4.1 mmol/L (3.5-5.1); Sodium 137 mmol/L (137-145); Total Bilirubin 0.3 mg/dL (0.2-1.3); Total Protein 5.3 g/dL (6.3-8.2)
[2022-04-01 08:49] LABS: Anisocytosis Slight; Basophils % (A) 1 %; Eosinophils # (A) 0.1 k/uL (0-0.7); Eosinophils % (A) 1 %; HCT 31.4 % (34.0-46.0); HGB 9.4 gm/dL (11.4-16.0); Hypochromasia Marked; Lymphocytes # (A) 1.7 k/uL (1.0-4.8); Lymphocytes % (A) 45 %; MCH 25.6 pg (25.0-35.0); MCHC 30.1 g/dL (31.0-37.0); MCV 85.1 fL (80.0-100.0); Mean Platelet Volume 8.1; Monocytes # (A) 0.3 k/uL (0-1.0); Monocytes % (A) 8 %; Neutrophils # (A) 1.6 k/uL (1.3-7.7); Neutrophils % (A) 42 %; Platelet Count 363 k/uL (150-450); RBC 3.69 m/uL (3.80-5.40); RDW 16.6 % (11.5-15.5); WBC 3.7 k/uL (3.8-10.6)
--- NOTE | 2022-04-01 09:19 | XR ---
EXAMINATION TYPE: XR chest 2V DATE OF EXAM: 04/01/2022 COMPARISON: Prior exam 03/24/2022 HISTORY: Pneumonia TECHNIQUE: Frontal and lateral views of the chest are obtained. FINDINGS: There is blunting the posterior costophrenic angles which is developed in the interval. Ca rdiac mediastinal silhouette is likely stable although the patient is markedly rotated. No evident pn eumothorax. Postop changes are noted to the cervical thoracic spine. Interstitium is increased. Patch y densities present in the right upper lobe. IMPRESSION: There may be a component of interstitial edema, pleural effusions, correlate for volume overload, pneumonia
[2022-04-01] MEDS ORDERED: FUROSEMIDE 10 MG/ML 4 ML VIAL IV STA (11:12)
--- NOTE | 2022-04-01 11:15 | P.PN ---
Subjective Progress Note Date: 04/01/22 77-year-old woman with a history of Parkinson's, severe protein calorie malnutrition, Sjogren's, lupus, chronic back and neck pain with narcotic dependence presented from home with complaints of uncontrolled pain as well as shortness of breath. In the emergency room, patient was afebrile, 112/56, heart rate 88, 98% on room air. CBC demonstrates a white blood cell count 20.7, hemoglobin of 8.9, neutrophil predominance. Chemistries are unremarkable. Liver function test shows elevated liver function tests at 243, 191 of AST, ALT respectively, low total protein of 5.4, low albumin at 3.3. Coags were unremarkable. Troponin was less than 0.012. Ammonia level was 11. TSH was 1.47. Free T4 is 1.53. Free T3 is 5.0. UA shows trace protein, large blood, moderate leukocyte esterase, 12 red blood cells, 13 white blood cells, rare bacteria. COVID 19 was negative. EKG is of poor quality due to Parkinson's tremors during the reading, appears to be normal sinus rhythm. Chest x-ray demonstrates findings suggestive of right lower lobe pneumonia. Brain CT is negative for an acute intracranial process. Patient was seen and examined. No acute events overnight. Currently being treated for community acquired pneumonia. Seen comfortably sleeping in bed. Gen: no acute distress HEENT: normocephalic, atraumatic, good hearing acuity, moist mucous membranes Resp: good air exchange, breathing comfortably with no accessory muscle use CVS: good distal perfusion x 4, GI: soft, NTTP, ND : no SPT, no CVAT, jones catheter not present MSK: no pitting edema, no clubbing Neuro: non-focal, moving all extremities Psych: cooperative, euthymic mood #Sepsis #Community acquired pneumonia #MRSA sputum culture -Admit to inpatient, telemetry -Completed course of Ceftriaxone, azithromycin -Started on Vancomycin 03/31 -Pulmonary vascular congestion on CXR 04/01, given one dose of Lasix 40 mg IV -Blood culture negative -Consult ID for MRSA sputum culture, appreciate recommendations -Procalcitonin and CRP negative -Hospice consult -Oxygen as needed #Intractable back pain #Chronic back and neck pain with narcotic dependence -Morphine 4mg every 3 hours when necessary -[place]ity when necessary -Bowel regimen #Severe protein calorie malnutrition -Dietitian consult #History of Parkinson's #History of Sjogren's #History of lupus #Dementia -Home medications reviewed and reconciled Public guardian working on securing placement. Medically stable. Patient is DO NOT RESUSCITATE/DO NOT INTUBATE DVT prophylaxis with heparin twice a day Objective - Vital Signs Vital signs: Vital Signs Temp 97.8 F 04/01/22 04:46 Pulse 67 04/01/22 04:46 Resp 16 04/01/22 04:46 BP 111/55 04/01/22 04:46 Pulse Ox 99 04/01/22 04:46 FiO2 21 03/27/22 19:42 Intake & Output 03/31/22 04/01/22 04/01/22 18:59 06:59 18:59 Intake Total 1128 790 Output Total 800 Balance 328 790 Intake: Intake, IV Titration 250 Amount Vancomycin 750 mg In 250 Sodium Chloride 0.9% 250 ml @ 125 mls/hr IVPB Q12H [facility] Rx#:[id number] Oral 1128 540 Output: Urine 800 Other: Voiding Method Incontinent Incontinent External Catheter External Catheter # Voids 2 500 - Labs CBC & Chem 7: 04/01/22 06:28 04/01/22 06:28 Labs: Abnormal Lab Results - Last 24 Hours (Table) 03/31/22 04/01/22 04/01/22 Range/Units 16:42 06:28 06:28 WBC 3.7 L (3.8-10.6) k/uL RBC 3.69 L (3.80-5.40) m/uL Hgb 9.4 L (11.4-16.0) gm/dL Hct 31.4 L (34.0-46.0) % MCHC 30.1 L (31.0-37.0) g/dL RDW 16.6 H (11.5-15.5) % BUN 20 H (7-17) mg/dL Creatinine 0.45 L 0.45 L (0.52-1.04) mg/dL Calcium 8.1 L (8.4-10.2) mg/dL ALT 38 H (4-34) U/L Total Protein 5.3 L (6.3-8.2) g/dL Albumin 3.2 L (3.5-5.0) g/dL
[2022-04-01] MEDS: LORazepam 1 MG/0.5 ML VIAL IV PRN (11:28)
[2022-04-01] MEDS: MELATONIN 5 MG TABLET PO SCH (20:41)
[2022-04-01] MEDS: QUEtiapine 100 MG TAB PO SCH (20:42)
[2022-04-02] MEDS: HYDROcodone/APAP 10-325MG 1 EACH TAB PO SCH ×4 (00:10→12:14)
[2022-04-02] MEDS: rOPINIRole HCL 4 MG TABLET PO SCH ×3 (04:03→12:14)
[2022-04-02] MEDS: VANCOMYCIN 750 MG in SODIUM CHLORIDE 0.9% 250 ML IVPB SCH (04:04)
[2022-04-02 05:00] LABS: African American GFR (CKD) >90 (>60 ml/min/1.73 sqM); Non-African American GFR(CKD) >90 (>60 ml/min/1.73 sqM)
[2022-04-02] MEDS ORDERED: VANCOMYCIN TROUGH DUE 1 EACH MISC MISCELLANE ONE (05:00)
[2022-04-02] MEDS: BACITRACIN OINT 1 EACH PACKET TOPICAL SCH ×2 (08:01→12:15)
[2022-04-02] MEDS: predniSONE 10 MG TAB PO SCH (08:01)
[2022-04-02] MEDS: PANTOPRAZOLE 40 MG TABLET PO SCH (08:01)
[2022-04-02] MEDS: HEPARIN SODIUM,PORCINE/PF 5,000 UNIT/0.5 ML SYRINGE SQ SCH (08:01)
[2022-04-02] MEDS: DULoxetine HCL 60 MG CAPSULE.DR PO SCH (08:01)
[2022-04-02] MEDS: ALPRAZolam 0.5 MG TAB PO PRN (08:01)
[2022-04-02] MEDS: LORATADINE 10 MG TAB PO SCH (08:01)
[2022-04-02] MEDS: busPIRone HCl 10 MG TAB PO SCH (08:01)
[2022-04-02] MEDS: SENNOSIDES-DOCUSATE SODIUM 1 EACH TAB PO SCH (08:07)
[2022-04-02] MEDS: hydrOXYzine pamoate 25 MG CAP PO PRN (09:11)
[2022-04-02] MEDS: MORPHINE SULFATE 4 MG/ML SYRINGE IVP PRN ×3 (09:12→15:15)
--- NOTE | 2022-04-02 10:20 | P.PN ---
Subjective Progress Note Date: 04/02/22 77-year-old woman with a history of Parkinson's, severe protein calorie malnutrition, Sjogren's, lupus, chronic back and neck pain with narcotic dependence presented from home with complaints of uncontrolled pain as well as shortness of breath. In the emergency room, patient was afebrile, 112/56, heart rate 88, 98% on room air. CBC demonstrates a white blood cell count 20.7, hemoglobin of 8.9, neutrophil predominance. Chemistries are unremarkable. Liver function test shows elevated liver function tests at 243, 191 of AST, ALT respectively, low total protein of 5.4, low albumin at 3.3. Coags were unremarkable. Troponin was less than 0.012. Ammonia level was 11. TSH was 1.47. Free T4 is 1.53. Free T3 is 5.0. UA shows trace protein, large blood, moderate leukocyte esterase, 12 red blood cells, 13 white blood cells, rare bacteria. COVID 19 was negative. EKG is of poor quality due to Parkinson's tremors during the reading, appears to be normal sinus rhythm. Chest x-ray demonstrates findings suggestive of right lower lobe pneumonia. Brain CT is negative for an acute intracranial process. Patient was seen and examined. No acute events overnight. Currently being treated for community acquired pneumonia. Patient reports uncontrolled lower back pain. She complains of anxiety. Gen: no acute distress HEENT: normocephalic, atraumatic, good hearing acuity, moist mucous membranes Resp: good air exchange, breathing comfortably with no accessory muscle use CVS: good distal perfusion x 4, GI: soft, NTTP, ND : no SPT, no CVAT, jones catheter not present MSK: no pitting edema, no clubbing Neuro: non-focal, moving all extremities Psych: cooperative, euthymic mood #Sepsis #Community acquired pneumonia #MRSA sputum culture -Admit to inpatient, telemetry -Completed course of Ceftriaxone, azithromycin -Started on Vancomycin 03/31 -Pulmonary vascular congestion on CXR 04/01, given one dose of Lasix 40 mg IV 04/01 -Blood culture negative -Consult ID for MRSA sputum culture, appreciate recommendations -Procalcitonin and CRP negative -Oxygen as needed #Intractable back pain #Chronic back and neck pain with narcotic dependence -Morphine 4mg every 3 hours when necessary -[place]ison when necessary -Bowel regimen #Severe protein calorie malnutrition -Dietitian consult #History of Parkinson's #History of Sjogren's #History of lupus #Dementia -Home medications reviewed and reconciled Public guardian working on securing placement. Medically stable. We will discuss with the guardian if patient should be on hospice. Patient is DO NOT RESUSCITATE/DO NOT INTUBATE DVT prophylaxis with heparin twice a day Objective - Vital Signs Vital signs: Vital Signs Temp 97.1 F L 04/02/22 04:50 Pulse 64 04/02/22 04:50 Resp 18 04/02/22 04:50 BP 90/57 04/02/22 04:50 Pulse Ox 94 L 04/02/22 04:50 FiO2 21 03/27/22 19:42 Intake & Output 04/01/22 04/02/22 04/02/22 18:59 06:59 18:59 Output Total 400 275 Balance -400 -275 Output: Urine 400 275 Other: Voiding Method Incontinent Diaper External Catheter Incontinent External Catheter # Voids 1 - Labs CBC & Chem 7: 04/01/22 06:28 04/02/22 03:58 Labs: Abnormal Lab Results - Last 24 Hours (Table) 04/02/22 Range/Units 03:58 Creatinine 0.45 L (0.52-1.04) mg/dL
[2022-04-02] MEDS ORDERED: VANCOMYCIN 750 MG in SODIUM CHLORIDE 0.9% 250 ML IVPB SCH (12:00)
[2022-04-02 12:02] VITALS: BP 134/70; PULSE 70; RESP 15; TEMP 97.7
[2022-04-02] MEDS: LORazepam 1 MG/0.5 ML VIAL IV PRN (15:14)
== END 2022-04-02 16:30 | disposition hospice, inpatient (51) | DRG 871 ==
LOC: EC 14:20 → EEVIPCON 16:23 → 5NMEDONC 16:23
PROVIDERS: ADMIT Internal Medicine; ATTEND Internal Medicine
DX: A41.9 Sepsis, unspecified organism (principal); E43 Unspecified severe protein-calorie malnutrition; J18.9 Pneumonia, unspecified organism; F02.83 Dementia in other diseases classified elsewhere, unspecified severity, with mood disturbance; F02.84 Dementia in other diseases classified elsewhere, unspecified severity, with anxiety; F11.20 Opioid dependence, uncomplicated; R64 Cachexia; Z68.1 Body mass index [BMI] 19.9 or less, adult; M54.2 Cervicalgia; M54.9 Dorsalgia, unspecified; Z66 Do not resuscitate; M32.9 Systemic lupus erythematosus, unspecified; Z51.5 Encounter for palliative care; F32.A Depression, unspecified; G20 Parkinson's disease; G89.29 Other chronic pain; K31.84 Gastroparesis; M35.00 Sjogren syndrome, unspecified; Q96.9 Turner's syndrome, unspecified; R29.6 Repeated falls; Z20.822 Contact with and (suspected) exposure to COVID-19; Z79.899 Other long term (current) drug therapy; Z71.3 Dietary counseling and surveillance; Z86.14 Personal history of Methicillin resistant Staphylococcus aureus infection
CPT/HCPCS: 36415; 70450; 71046; 80048; 80053; 80202; 81001; 82140; 82565; 83605; 83735; 84100; 84145; 84439; 84443; 84481; 84484; 85025; 85610; 85730; 86140; 87040; 87070; 87077; 87086; 87186; 87205; 87635; 93005; 94760; 96360; 96361; 99285